=== PATIENT | male | born 1980 | race Caucasian/White ===

== ENCOUNTER 2018-11-03 10:26 | Emergency (ER) | payer OTHER ==
[2018-11-03 10:42] VITALS: BP 121/73; PULSE 73; RESP 18; TEMP 98.1
[2018-11-03] MEDS ORDERED: IBUPROFEN 600 MG TAB PO STA (11:04)
[2018-11-03] MEDS ORDERED: methylPREDNISolone SOD SUCCI 125 MG/2 ML VIAL IM ONE (11:04)
[2018-11-03] MEDS ORDERED: ORPHENADRINE 30 MG/ML 2 ML VIAL IM STA (11:04)
--- NOTE | 2018-11-03 11:33 | ED ---
General Adult HPI - General Chief complaint: Neck Pain/Injury Stated complaint: Neck pain Time Seen by Provider: 11/03/18 10:45 Source: patient, RN notes reviewed Mode of arrival: ambulatory Limitations: no limitations - History of Present Illness Initial comments: 38-year-old male presents to the emergency department for a chief complaint of chronic neck pain. Patient states he injured his neck years ago and has arthritis in his neck as well as right-sided posterior neck pain. Patient denies any recent injuries. Patient states this flared up over the past few weeks. Patient states he recently moved to the area yesterday. He states he has an appointment with pain management in 2 weeks. Patient denies any fevers or chills. He denies any neck stiffness. Patient denies any numbness or tingling in the bilateral arms. Patient has no other complaints at this time including shortness of breath, chest pain, abdominal pain, nausea or vomiting, headache, or visual changes. - Related Data Home Medications Medication Instructions Recorded Confirmed Ibuprofen [Motrin Ib] 600 mg PO TID PRN 11/03/18 11/03/18 Previous Rx's Medication Instructions Recorded Ibuprofen [Motrin] 600 mg PO Q8HR PRN #20 tab 11/03/18 Allergies Allergy/AdvReac Type Severity Reaction Status Date / Time No Known Allergies Allergy Verified 11/03/18 11:00 Review of Systems ROS Statement: Those systems with pertinent positive or pertinent negative responses have been documented in the HPI. ROS Other: All systems not noted in ROS Statement are negative. Past Medical History Additional Past Medical History / Comment(s): neck injury History of Any Multi-Drug Resistant Organisms: None Reported Past Surgical History: No Surgical Hx Reported Past Psychological History: ADD/ADHD, Anxiety, Depression Smoking Status: Former smoker Past Alcohol Use History: None Reported Past Drug Use History: None Reported General Exam Limitations: no limitations General appearance: alert, in no apparent distress Head exam: Present: atraumatic, normocephalic, normal inspection Eye exam: Present: normal appearance, PERRL, EOMI. Absent: scleral icterus, conjunctival injection, periorbital swelling ENT exam: Present: normal exam, mucous membranes moist, normal external ear exam Neck exam: Present: normal inspection, tenderness (Minimal tenderness noted over the paraspinal muscles on right side, no midline C-spine tenderness), full ROM (Full range of motion including flexion and extension rotation and lateral bending bilaterally). Absent: meningismus, lymphadenopathy Respiratory exam: Present: normal lung sounds bilaterally. Absent: respiratory distress, wheezes, rales, rhonchi, stridor Cardiovascular Exam: Present: regular rate, normal rhythm, normal heart sounds. Absent: systolic murmur, diastolic murmur, rubs, gallop, clicks Extremities exam: Present: full ROM (Full range of motion of upper extremities) , normal capillary refill (Radial pulse 2+ in upper extremities bilaterally) Neurological exam: Present: alert, oriented X3, CN II-XII intact Psychiatric exam: Present: normal affect, normal mood Course Vital Signs 11/03/18 10:39 Temperature 98.1 F Pulse Rate 73 Respiratory 18 Rate Blood Pressure 121/73 O2 Sat by Pulse 98 Oximetry Medical Decision Making - Medical Decision Making 38-year-old male presents for chronic neck pain. Patient denies any acute injuries. No tenderness in the C-spine. Minimal tenderness in the right-sided paraspinal muscles of the cervical neck. Patient showing medication seeking tendencies. Patient states he has been to multiple hospitals where they have given him small prescriptions for narcotics. I did discuss with patient that this is chronic and I will not be giving him narcotics today but will give him a steroid shot, muscle relaxer, Motrin. Patient states he knows it is up to the doctor's discretion and asks if any other providers here would be able to give him this pain medication. Patient just moved here yesterday so has not been seen in this emergency department but does state he has been to multiple hospitals for pain medications. [facility] was reviewed. Patient has had multiple small prescriptions on from multiple different providers over the past few months including tramadol, Tylenol 3, [place]. Patient does not have any midline tenderness, he has full range of motion of his neck. No acute injuries. No imaging needed at this time. Patient does have an appointment with pain management in 2 weeks and he will follow up with. He was also given a referral to primary care. Discussed returning here if he has any worsening symptoms. Disposition Clinical Impression: Chronic neck pain Disposition: HOME SELF-CARE Condition: Good Instructions: Cervical Strain (ED), Neck Pain (ED) Additional Instructions: Please take Motrin and Tylenol for pain. Please follow-up with primary care and attend your pain management appointment in 2 weeks. Return if you have any worsening symptoms. Prescriptions: Ibuprofen [Motrin] 600 mg PO Q8HR PRN #20 tab PRN Reason: Pain Is patient prescribed a controlled substance at d/c from ED?: No Referrals: Melly Huerta MD [STAFF PHYSICIAN] - 1-2 days Time of Disposition: 11:33
== END 2018-11-03 11:56 | disposition home or self-care (01) ==
LOC: EC 10:26
DX: G89.29 Other chronic pain (principal); M54.2 Cervicalgia; Z87.891 Personal history of nicotine dependence
CPT/HCPCS: 99283; 96372 ×2; J2360; J2930

== ENCOUNTER 2018-12-04 10:00 | Emergency (ER) | payer OTHER ==
[2018-12-04 10:08] VITALS: BP 130/87; PULSE 87; RESP 16; TEMP 98.7
[2018-12-04] MEDS ORDERED: CYCLOBENZAPRINE 10 MG TAB PO STA (10:32)
[2018-12-04] MEDS ORDERED: KETOROLAC 60 MG/2 ML VIAL IM STA (10:32)
--- NOTE | 2018-12-04 11:05 | ED ---
Neck Injury/Pain HPI - General Chief Complaint: Neck Pain/Injury Stated Complaint: neck pain Time Seen by Provider: 12/04/18 10:13 Mode of arrival: ambulatory Limitations: no limitations - History of Present Illness Initial Comments: 38-year-old male resents today for chief complaint of neck pain. Patient states he has had chronic neck pain for years, denies any new injury. He states he has been on medications at home which don't seem to be helping, he did not elaborate which medication he is on. He initially told me he had an appointment with a pain management clinic next month, when I asked which clinic he states will be point is actually with her primary care provider to set up an appointment at a pain management clinic. This is similar to the history obtained a month ago, and patient still has not been evaluated by pain management. Pt denies any numbness, tingling, loss sensation, muscle weakness, trauma, fever, chills, IVDU. Pt point to paravertebral muscles of the neck, right sided upon further questioning. Patient denies any previous surgeries. Upon arrival to the emergency Department patient is unable to provide identification. Multiple addresses used. Story appears inconsistent. Patient denies any recent fever, chills, shortness of breath, chest pain,low back pain, abdominal pain, nausea or vomiting, numbness or tingling, dysuria or hematuria, constipation or diarrhea, headaches or visual changes, or any other complaints. - Related Data Home Medications Medication Instructions Recorded Confirmed Ibuprofen [Motrin Ib] 600 mg PO Q6H PRN 12/04/18 12/04/18 Vitamin B Complex 1 cap PO DAILY 12/04/18 12/04/18 Previous Rx's Medication Instructions Recorded Cyclobenzaprine [Flexeril] 10 mg PO TID 5 Days #15 tab 12/04/18 Ibuprofen 800 mg PO Q8H PRN 7 Days #21 tablet 12/04/18 Allergies Allergy/AdvReac Type Severity Reaction Status Date / Time No Known Allergies Allergy Verified 12/04/18 10:22 Review of Systems ROS Statement: Those systems with pertinent positive or pertinent negative responses have been documented in the HPI. ROS Other: All systems not noted in ROS Statement are negative. Past Medical History Additional Past Medical History / Comment(s): neck injury History of Any Multi-Drug Resistant Organisms: None Reported Past Surgical History: No Surgical Hx Reported Past Psychological History: ADD/ADHD, Anxiety, Depression Smoking Status: Former smoker Past Alcohol Use History: None Reported Past Drug Use History: None Reported General Exam - General Exam Comments Initial Comments: General: The patient is awake and alert, in no distress, and does not appear acutely ill. Eye: +3 mm pupils are equal, round and reactive to light, extra-ocular movements are intact. No nystagmus. There is normal conjunctiva bilaterally. No signs of icterus. Ears, nose, mouth and throat: There are moist mucous membranes and no oral lesions. Oropharynx nonerythematous. No posterior lymphadenopathy. Neck: The neck is supple, there is no tenderness or JVD. Cardiovascular: There is a regular rate and rhythm. No murmur, rub or gallop is appreciated. Respiratory: Lungs are clear to auscultation, respirations are non-labored, breath sounds are equal. No wheezes, stridor, rales, or rhonchi. Musculoskeletal: Normal inspection of cervical spine, there is no midline tenderness to palpation. There is right-sided paravertebral tenderness. Patient is able to fully range the [place] spine with both flexion and extension , lateral flexion and rotation. Normal ROM, no tenderness of the upper extremities equal and comparison bilaterally. Strength 5/5 of the upper extremities equal comparison bilaterally. Sensation intact of the upper extremities equal b/l. Radial pulses equal bilaterally 2+. Patient is able to make the okay fingers crossed him Xopenex at the wrist bilaterally ulnar median and radial nerve appear intact. Neurological: A&O x 3. CN II-XII intact, There are no obvious motor or sensory deficits. Coordination appears grossly intact. Speech is normal. Skin: Skin is warm and dry and no rashes or lesions are noted. Psychiatric: Cooperative. Limitations: no limitations Course Vital Signs 12/04/18 10:05 Temperature 98.7 F Pulse Rate 87 Respiratory 16 Rate Blood Pressure 130/87 O2 Sat by Pulse 97 Oximetry Medical Decision Making - Medical Decision Making 38-year-old presenting for atraumatic neck pain. Denies any fever or chills or photophobia. Denies IV drug use. No radicular symptoms. Patient neurovascularly intact upon examination. Patient does not appear in distress. Patient appears comfortable. Pt states he takes medications at home that don't work. Pt story changes throughout history taking, appears inconsistent. At this time I obtained neck studies which revealed mild spondytic changes, pain is paravertebral. Toradol was administered for pain. PT requesting opioids. Pt states "if your going to give valium can you give me the hightest dose that you have". Pt states he has ride home was given 5mg PO valium. At this time I feel pt is stable for discharge with outpatient management of chronic neck pain through the primary care provider and pain clinic as discussed. Patient discharged appearing well. VS within acceptable limits. I discussed the case attending provider Dr. Soria prior to patient's discharge reviewed all radiographic imaging. Disposition Clinical Impression: Chronic neck pain Disposition: HOME SELF-CARE Condition: Good Instructions (If sedation given, give patient instructions): Chronic Neck Pain (DC) Additional Instructions: Please use medication as discussed. Please follow-up with family doctor in the next 2 days.. Please return to emergency room if the symptoms increase or worsen or for any other concerns. Prescriptions: Cyclobenzaprine [Flexeril] 10 mg PO TID 5 Days #15 tab Ibuprofen 800 mg PO Q8H PRN 7 Days #21 tablet PRN Reason: Pain Is patient prescribed a controlled substance at d/c from ED?: No Referrals: None,Stated [Primary Care Provider] - 1-2 days Dc Sanders, [Doctor of Osteopathic Medicine] - 1-2 days Time of Disposition: 11:09
--- NOTE | 2018-12-04 11:14 | XR ---
EXAMINATION TYPE: XR cervical spine comp DATE OF EXAM: 12/04/2018 COMPARISON: None HISTORY: 38-year-old male pain TECHNIQUE: 5 views FINDINGS: No predental space widening or prevertebral soft tissue swelling. Minimal endplate spondylosis. Mild uncovertebral joint arthropathy mid to lower cervical spine. Changes result in mild bony neuroforamin al narrowing at C5-C6 on the right. No significant bony neuroforaminal narrowing on the left. Normal odontoid view. IMPRESSION: Very mild spondylotic change. Changes result in mild bony neuroforaminal narrowing on the right at C5 -C6. No malalignment or prevertebral soft tissue swelling.
[2018-12-04] MEDS ORDERED: DIAZEPAM 5 MG TAB PO STA (11:24)
== END 2018-12-04 12:18 | disposition home or self-care (01) ==
LOC: EC 10:00
DX: M54.2 Cervicalgia (principal); G89.29 Other chronic pain; Z87.891 Personal history of nicotine dependence; Z53.29 Procedure and treatment not carried out because of patient's decision for other reasons
CPT/HCPCS: 72050; 99283; 96372; J1885

== ENCOUNTER 2018-12-23 10:41 | Emergency (ER) | payer OTHER ==
[2018-12-23 11:14] VITALS: BP 119/69; PULSE 72; RESP 18; TEMP 98
--- NOTE | 2018-12-23 11:51 | ED ---
Skin/Abscess/FB HPI - General Chief complaint: Skin/Abscess/Foreign Body Stated complaint: Male /rash Time Seen by Provider: 12/23/18 11:21 Source: patient, RN notes reviewed Mode of arrival: ambulatory Limitations: no limitations - History of Present Illness Initial comments: 38-year-old male presents emergency from chief complaint of rash his left side of his scrotum. Patient states that it itches at times but otherwise not painful. Patient states it seems to come and go worsen at times of increased warmth and moisture. Patient denies any penile discharge no penile shaft lesions or sores. Patient states that he's had some relief with antifungals in the past. - Related Data Home Medications Medication Instructions Recorded Confirmed No Known Home Medications 12/23/18 12/23/18 Allergies Allergy/AdvReac Type Severity Reaction Status Date / Time No Known Allergies Allergy Verified 12/23/18 11:47 Review of Systems ROS Statement: Those systems with pertinent positive or pertinent negative responses have been documented in the HPI. ROS Other: All systems not noted in ROS Statement are negative. Past Medical History Additional Past Medical History / Comment(s): neck injury History of Any Multi-Drug Resistant Organisms: None Reported Past Surgical History: No Surgical Hx Reported Past Psychological History: ADD/ADHD, Anxiety, Depression Smoking Status: Former smoker Past Alcohol Use History: None Reported Past Drug Use History: None Reported General Exam Limitations: no limitations General appearance: alert, in no apparent distress Head exam: Present: atraumatic, normocephalic, normal inspection Respiratory exam: Present: normal lung sounds bilaterally. Absent: respiratory distress, wheezes, rales, rhonchi, stridor Cardiovascular Exam: Present: regular rate, normal rhythm, normal heart sounds. Absent: systolic murmur, diastolic murmur, rubs, gallop, clicks GI/Abdominal exam: Present: soft, normal bowel sounds. Absent: distended, tenderness, guarding, rebound, rigid exam: Present: other (Left sided scrotal nursing erythematous demarcated border rash with no open lesions or sores no penile sores, no penile drainage area is nontender) Course Vital Signs 12/23/18 11:12 Temperature 98 F Pulse Rate 72 Respiratory 18 Rate Blood Pressure 119/69 O2 Sat by Pulse 99 Oximetry Medical Decision Making - Medical Decision Making 38 show male presented for rash. Patient appears to have a candidate DL infection on his scrotum. Patient was offered prescription of medication he states he'll use [id number] medication. He is also advised to follow-up with oncology or urology for biopsy if no improvement in the next 1-2 weeks. Disposition Clinical Impression: Candidiasis of scrotum Disposition: HOME SELF-CARE Condition: Stable Instructions (If sedation given, give patient instructions): Dony Mckeon (ED) Additional Instructions: Please return to the Emergency Department if symptoms worsen or any other concerns. Is patient prescribed a controlled substance at d/c from ED?: No Referrals: None,Stated [Primary Care Provider] - 1-2 days Time of Disposition: 11:51
== END 2018-12-23 12:10 | disposition home or self-care (01) ==
LOC: EC 10:41
DX: B37.89 Other sites of candidiasis (principal); Z87.891 Personal history of nicotine dependence
CPT/HCPCS: 99282

== ENCOUNTER 2018-12-27 16:05 | Emergency (ER) | payer OTHER ==
[2018-12-27 16:19] VITALS: TEMP 98.1
[2018-12-27] MEDS ORDERED: ASPIRIN 81 MG PO STA (16:27)
[2018-12-27] MEDS ORDERED: SODIUM CHLORIDE 0.9% 1,000 ML IV STA (16:27)
--- NOTE | 2018-12-27 16:34 | ED ---
General Adult HPI - General Chief complaint: Arrhythmia/Palpitations Stated complaint: Anxiety Time Seen by Provider: 12/27/18 16:22 Source: patient, RN notes reviewed Mode of arrival: ambulatory Limitations: no limitations - History of Present Illness Initial comments: 38-year-old male presents to the emergency department for a chief complaint of chest pain. Patient states he had a sharp stabbing chest pain in the center of his chest. He states he woke up with this pain. He states he drank a significant amount of alcohol last night and does not remember what kind of drugs he did. Patient is concerned he may have done methamphetamine. Patient states chest pain is resolved at this time but he still feels as though he is very anxious. He states he came here just to make sure everything is okay. Patient has no other complaints at this time including shortness of breath, chest pain, abdominal pain, nausea or vomiting, headache, or visual changes. - Related Data Home Medications Medication Instructions Recorded Confirmed No Known Home Medications 12/23/18 12/27/18 Allergies Allergy/AdvReac Type Severity Reaction Status Date / Time No Known Allergies Allergy Verified 12/27/18 16:32 Review of Systems ROS Statement: Those systems with pertinent positive or pertinent negative responses have been documented in the HPI. ROS Other: All systems not noted in ROS Statement are negative. Past Medical History Additional Past Medical History / Comment(s): neck injury History of Any Multi-Drug Resistant Organisms: None Reported Past Surgical History: No Surgical Hx Reported Past Psychological History: ADD/ADHD, Anxiety, Depression Smoking Status: Former smoker Past Alcohol Use History: None Reported Past Drug Use History: None Reported General Exam Limitations: no limitations General appearance: anxious Head exam: Present: atraumatic, normocephalic, normal inspection Eye exam: Present: normal appearance, PERRL, EOMI. Absent: scleral icterus, conjunctival injection, periorbital swelling ENT exam: Present: normal exam, mucous membranes moist Neck exam: Present: normal inspection, full ROM. Absent: tenderness, meningismus, lymphadenopathy Respiratory exam: Present: normal lung sounds bilaterally. Absent: respiratory distress, wheezes, rales, rhonchi, stridor Cardiovascular Exam: Present: regular rate, normal rhythm, normal heart sounds. Absent: systolic murmur, diastolic murmur, rubs, gallop, clicks Neurological exam: Present: alert, oriented X3, CN II-XII intact Psychiatric exam: Present: normal affect, normal mood. Absent: homicidal ideation, suicidal ideation (denies suicidal thoughts) Course Vital Signs 12/27/18 12/27/18 12/27/18 16:16 17:15 18:43 Temperature 98.1 F Pulse Rate 103 H 92 89 Respiratory 18 20 18 Rate Blood Pressure 138/83 136/83 132/63 O2 Sat by Pulse 97 97 100 Oximetry EKG Findings - EKG Comments: EKG Findings:: Normal sinus rhythm, ventricular rate 99, OH interval 142, QTC 408 Medical Decision Making - Medical Decision Making 38 her old male presents to the emergency department for a chief pain. He states he has had a sharp stabbing chest pain in the center chest since this morning. He states he drank a significant amount of alcohol last night and is concerned he may have done methamphetamine which has been making him very anxious. He states his chest pain has resolved at this time but he is still feeling anxious. On exam patient is well-appearing. Exam is generally unremarkable. CBC is unremarkable. CMP does show an elevated bilirubin of 2.6, I did discuss this with patient and he is not having any abdominal pain. However he is aware he needs to follow up with primary care to have this redrawn. CMP is otherwise unremarkable. Troponin is negative. UDS is positive for methamphetamines and amphetamines. Chest x-ray shows no acute process. On revaluation patient is sitting much better. He is stating he is ready to go home. Patient will follow up with primary care and return here if he has any worsening symptoms. - Lab Data Result diagrams: 12/27/18 16:47 12/27/18 16:47 Lab Results 12/27/18 12/27/18 12/27/18 Range/Units 16:47 16:47 16:47 WBC 8.3 (3.8-10.6) k/uL RBC 5.43 (4.30-5.90) m/uL Hgb 16.8 (13.0-17.5) gm/dL Hct 49.7 (39.0-53.0) % MCV 91.4 (80.0-100.0) fL MCH 30.9 (25.0-35.0) pg MCHC 33.8 (31.0-37.0) g/dL RDW 12.4 (11.5-15.5) % Plt Count 241 (150-450) k/uL Neutrophils % 75 % Lymphocytes % 17 % Monocytes % 6 % Eosinophils % 1 % Basophils % 0 % Neutrophils # 6.2 (1.3-7.7) k/uL Lymphocytes # 1.4 (1.0-4.8) k/uL Monocytes # 0.5 (0-1.0) k/uL Eosinophils # 0.1 (0-0.7) k/uL Basophils # 0.0 (0-0.2) k/uL PT 11.2 (9.0-12.0) sec INR 1.1 (<1.2) APTT 25.3 (22.0-30.0) sec Sodium 139 (137-145) mmol/L Potassium 4.0 (3.5-5.1) mmol/L Chloride 103 (98-107) mmol/L Carbon Dioxide 22 (22-30) mmol/L Anion Gap 14 mmol/L BUN 18 (9-20) mg/dL Creatinine 0.87 (0.66-1.25) mg/dL Est GFR (CKD-EPI)AfAm >90 (>60 ml/min/1.73 sqM) Est GFR (CKD-EPI)NonAf >90 (>60 ml/min/1.73 sqM) Glucose 126 H (74-99) mg/dL Calcium 9.8 (8.4-10.2) mg/dL Magnesium 2.0 (1.6-2.3) mg/dL Total Bilirubin 2.6 H (0.2-1.3) mg/dL AST 34 (17-59) U/L ALT 28 (21-72) U/L Alkaline Phosphatase 56 (38-126) U/L Troponin I (0.000-0.034) ng/mL Total Protein 8.4 H (6.3-8.2) g/dL Albumin 5.0 (3.5-5.0) g/dL Amylase 62 (30-110) U/L Lipase 29 (23-300) U/L Urine Color Urine Appearance (Clear) Urine pH (5.0-8.0) Ur Specific Godfrey (1.001-1.035) Urine Protein (Negative) Urine Glucose (UA) (Negative) Urine Ketones (Negative) Urine Blood (Negative) Urine Nitrite (Negative) Urine Bilirubin (Negative) Urine Urobilinogen (<2.0) mg/dL Ur Leukocyte Esterase (Negative) Urine RBC (0-5) /hpf Urine WBC (0-5) /hpf Ur Squamous Epith Cells (0-4) /hpf Urine Mucus (None) /hpf Urine Opiates Screen (NotDetected) Ur Oxycodone Screen (NotDetected) Urine Methadone Screen (NotDetected) Ur Propoxyphene Screen (NotDetected) Ur Barbiturates Screen (NotDetected) U Tricyclic Antidepress (NotDetected) Ur Phencyclidine Scrn (NotDetected) Ur Amphetamines Screen (NotDetected) U Methamphetamines Scrn (NotDetected) U Benzodiazepines Scrn (NotDetected) Urine Cocaine Screen (NotDetected) U Marijuana (THC) Screen (NotDetected) 12/27/18 12/27/18 Range/Units 16:47 16:47 WBC (3.8-10.6) k/uL RBC (4.30-5.90) m/uL Hgb (13.0-17.5) gm/dL Hct (39.0-53.0) % MCV (80.0-100.0) fL MCH (25.0-35.0) pg MCHC (31.0-37.0) g/dL RDW (11.5-15.5) % Plt Count (150-450) k/uL Neutrophils % % Lymphocytes % % Monocytes % % Eosinophils % % Basophils % % Neutrophils # (1.3-7.7) k/uL Lymphocytes # (1.0-4.8) k/uL Monocytes # (0-1.0) k/uL Eosinophils # (0-0.7) k/uL Basophils # (0-0.2) k/uL PT (9.0-12.0) sec INR (<1.2) APTT (22.0-30.0) sec Sodium (137-145) mmol/L Potassium (3.5-5.1) mmol/L Chloride (98-107) mmol/L Carbon Dioxide (22-30) mmol/L Anion Gap mmol/L BUN (9-20) mg/dL Creatinine (0.66-1.25) mg/dL Est GFR (CKD-EPI)AfAm (>60 ml/min/1.73 sqM) Est GFR (CKD-EPI)NonAf (>60 ml/min/1.73 sqM) Glucose (74-99) mg/dL Calcium (8.4-10.2) mg/dL Magnesium (1.6-2.3) mg/dL Total Bilirubin (0.2-1.3) mg/dL AST (17-59) U/L ALT (21-72) U/L Alkaline Phosphatase (38-126) U/L Troponin I <0.012 (0.000-0.034) ng/mL Total Protein (6.3-8.2) g/dL Albumin (3.5-5.0) g/dL Amylase (30-110) U/L Lipase (23-300) U/L Urine Color Yellow Urine Appearance Clear (Clear) Urine pH 5.5 (5.0-8.0) Ur Specific Godfrey 1.032 (1.001-1.035) Urine Protein 1+ H (Negative) Urine Glucose (UA) Negative (Negative) Urine Ketones 1+ H (Negative) Urine Blood Negative (Negative) Urine Nitrite Negative (Negative) Urine Bilirubin Negative (Negative) Urine Urobilinogen <2.0 (<2.0) mg/dL Ur Leukocyte Esterase Negative (Negative) Urine RBC 2 (0-5) /hpf Urine WBC 1 (0-5) /hpf Ur Squamous Epith Cells <1 (0-4) /hpf Urine Mucus Occasional H (None) /hpf Urine Opiates Screen Not Detected (NotDetected) Ur Oxycodone Screen Not Detected (NotDetected) Urine Methadone Screen Not Detected (NotDetected) Ur Propoxyphene Screen Not Detected (NotDetected) Ur Barbiturates Screen Not Detected (NotDetected) U Tricyclic Antidepress Not Detected (NotDetected) Ur Phencyclidine Scrn Not Detected (NotDetected) Ur Amphetamines Screen Detected H (NotDetected) U Methamphetamines Scrn Detected H (NotDetected) U Benzodiazepines Scrn Not Detected (NotDetected) Urine Cocaine Screen Not Detected (NotDetected) U Marijuana (THC) Screen Not Detected (NotDetected) - EKG Data -: EKG Interpreted by Me (and Dr Geiger) Disposition Clinical Impression: Chest pain, atypical, Anxiety Disposition: HOME SELF-CARE Condition: Good Instructions (If sedation given, give patient instructions): Heart Palpitations (ED), Polysubstance Abuse (ED) Additional Instructions: Please follow up with primary care in 1-2 days for abnormal lab results. Please return to the emergency department if you have any worsening symptoms. Is patient prescribed a controlled substance at d/c from ED?: No Referrals: Rio Key MD [STAFF PHYSICIAN] - 1-2 days Time of Disposition: 18:53
--- NOTE | 2018-12-27 17:14 | XR ---
EXAMINATION: XR chest 2V DATE AND TIME: 12/27/2018 5:03 PM CLINICAL INDICATION: PHH; Chest Pain TECHNIQUE: Departmental protocol COMPARISON: None FINDINGS: The lungs are clear. The pleural spaces are negative. The cardiac silhouette is not enlarged. The remainder of the mediastinal silhouette is unremarkable. The skeletal structures and soft tissues are negative for acute findings. IMPRESSION: NO ACUTE PROCESS.
[2018-12-27 17:22] LABS: Basophils % (A) 0 %; Eosinophils # (A) 0.1 k/uL (0-0.7); Eosinophils % (A) 1 %; HCT 49.7 % (39.0-53.0); HGB 16.8 gm/dL (13.0-17.5); Lymphocytes # (A) 1.4 k/uL (1.0-4.8); Lymphocytes % (A) 17 %; MCH 30.9 pg (25.0-35.0); MCHC 33.8 g/dL (31.0-37.0); MCV 91.4 fL (80.0-100.0); Mean Platelet Volume 7.4; Monocytes # (A) 0.5 k/uL (0-1.0); Monocytes % (A) 6 %; Neutrophils # (A) 6.2 k/uL (1.3-7.7); Neutrophils % (A) 75 %; Platelet Count 241 k/uL (150-450); RBC 5.43 m/uL (4.30-5.90); RDW 12.4 % (11.5-15.5); WBC 8.3 k/uL (3.8-10.6)
[2018-12-27 17:30] LABS: INR 1.1 (<1.2); Partial Thromboplastin Time 25.3 sec (22.0-30.0); Prothrombin Time 11.2 sec (9.0-12.0)
[2018-12-27 17:33] LABS: Appearance,Urine Clear (Clear); Bilirubin,Urine Negative (Negative); Blood,Urine Negative (Negative); Color,Urine Yellow; Glucose,Urine (UA) Negative (Negative); Ketones,Urine 1+ (Negative); Leukocyte Esterase,Urine Negative (Negative); Mucus,Urine Occasional /hpf; Nitrite,Urine Negative (Negative); PH, Urine 5.5 (5.0-8.0); Protein,Urine 1+ (Negative); RBC,Urine 2 /hpf (0-5); Specific Gravity,Urine 1.032 (1.001-1.035); Squamous Epithelial Cell,Urine <1 /hpf (0-4); Urobilinogen,Urine <2.0 mg/dL (<2.0); WBC,Urine 1 /hpf (0-5)
[2018-12-27 17:34] LABS: ALT 28 U/L (21-72); AST 34 U/L (17-59); Alkaline Phosphatase 56 U/L (38-126); Amylase 62 U/L (30-110); Anion Gap 14 mmol/L; Blood Urea Nitrogen 18 mg/dL (9-20); Calcium 9.8 mg/dL (8.4-10.2); Carbon Dioxide 22 mmol/L (22-30); Chloride 103 mmol/L (98-107); Glucose 126 mg/dL (74-99); Lipase 29 U/L (23-300); Sodium 139 mmol/L (137-145); Total Bilirubin 2.6 mg/dL (0.2-1.3); Total Protein 8.4 g/dL (6.3-8.2)
[2018-12-27] MEDS ORDERED: DIAZEPAM 5 MG/ML 2 ML INJ IVP STA (17:39)
[2018-12-27 17:49] LABS: Amphetamine Screen,Urine Detected (NotDetected); Barbiturate Screen,Urine Not Detected (NotDetected); Benzodiazepines Screen,Urine Not Detected (NotDetected); Cocaine Screen,Urine Not Detected (NotDetected); Methadone Screen, Urine Not Detected (NotDetected); Opiate Screen,Urine Not Detected (NotDetected); Oxycodone Screen, Urine Not Detected (NotDetected); Phencyclidine Screen,Urine Not Detected (NotDetected); Tricyclic Antidepressant,Urine Not Detected (NotDetected); Urn Cannabinoid Scrn Not Detected (NotDetected)
[2018-12-27] MEDS ORDERED: DIAZEPAM 5 MG/ML (10 ML MDV) IVP STA (17:54)
[2018-12-27 18:44] VITALS: BP 132/63; PULSE 89; RESP 18
== END 2018-12-27 19:02 | disposition home or self-care (01) ==
LOC: EC 16:05
DX: F41.9 Anxiety disorder, unspecified (principal); R07.89 Other chest pain; R79.89 Other specified abnormal findings of blood chemistry; Z87.891 Personal history of nicotine dependence
CPT/HCPCS: 36415; 80053; 82150; 83690; 83735; 84484; 85025; 85610; 85730; 81001; 80306; 71046; 99285; 96374; 96361; J3360

== ENCOUNTER 2019-02-10 22:32 | Emergency (ER) | payer OTHER ==
[2019-02-10 22:54] VITALS: BP 131/72; PULSE 90; RESP 18; TEMP 97.7
[2019-02-10] MEDS ORDERED: HYDROcodone/APAP 5-325MG 1 EACH TAB PO STA (23:26)
--- NOTE | 2019-02-10 23:29 | ED ---
General Adult HPI - General Chief complaint: Headache Stated complaint: head & neck pain Time Seen by Provider: 02/10/19 23:20 Source: patient Mode of arrival: ambulatory Limitations: no limitations - History of Present Illness Initial comments: Dictation was produced using [employer] dictation software. please excuse any grammatical, word or spelling errors. Chief Complaint: 38-year-old male presents with neck pain. History of Present Illness: 38-year-old male withpast medical history. Patient reports that he's been having this pain for several years now after an injury. States that he does not have any pain medications at home. Patient states that this pain makes him a little anxious. Is currently under house arrest. Patient denies any fever, chills or night sweats. He reports that there is a gummy consistency to his right trapezius area that is the point of his pain. The ROS documented in this emergency department record has been reviewed and confirmed by me. Those systems with pertinent positive or negative responses have been documented in the HPI. All other systems are other negative and/or noncontributory. PHYSICAL EXAM: General Impression: Alert and oriented x3, not in acute distress HEENT: Normocephalic atraumatic, extra-ocular movements intact, pupils equal and reactive to light bilaterally, mucous membranes moist, palpable trigger point over the right trapezius Cardiovascular: Heart regular rate and rhythm, S1&S2 audible, no murmurs, rubs or gallops Chest: Lungs clear to auscultation bilaterally, no rhonchi, no wheeze, no rales Abdomen: Bowel sounds present, abdomen soft, non-tender, non-distended, no organomegaly Musculoskeletal: Pulses present and equal in all extremities, no peripheral edema Motor: no focal deficits noted Neurological: CN II-XII grossly intact, no focal motor or sensory deficits noted Skin: Intact with no visualized rashes Psych: Normal affect and mood ED course: 38-year-old male presents with pain of the neck. Clinical presentation consistent with cervical neck strain. Patient given 2 Milnor. She reevaluated with improvement of symptoms. Vital signs upon arrival are within acceptable limits. Patient clear for discharge. Patient showing signs of drug- seeking behavior. Patient for discharge to follow-up with his primary care physician. - Related Data Home Medications Medication Instructions Recorded Confirmed No Known Home Medications 12/23/18 02/10/19 Allergies Allergy/AdvReac Type Severity Reaction Status Date / Time No Known Allergies Allergy Verified 02/10/19 23:16 Review of Systems ROS Statement: Those systems with pertinent positive or pertinent negative responses have been documented in the HPI. ROS Other: All systems not noted in ROS Statement are negative. Past Medical History Additional Past Medical History / Comment(s): neck injury, anxiety History of Any Multi-Drug Resistant Organisms: None Reported Past Surgical History: No Surgical Hx Reported Past Psychological History: ADD/ADHD, Anxiety, Depression Smoking Status: Former smoker Past Alcohol Use History: None Reported Past Drug Use History: None Reported General Exam Limitations: no limitations Course Vital Signs 02/10/19 22:49 Temperature 97.7 F Pulse Rate 90 Respiratory 18 Rate Blood Pressure 131/72 O2 Sat by Pulse 97 Oximetry Disposition Clinical Impression: Cervical strain Disposition: HOME SELF-CARE Condition: Good Instructions (If sedation given, give patient instructions): Cervical Strain (ED) Is patient prescribed a controlled substance at d/c from ED?: No Referrals: None,Stated [Primary Care Provider] - 1-2 days Time of Disposition: 23:29
== END 2019-02-10 23:54 | disposition home or self-care (01) ==
LOC: EC 22:32
DX: S16.1XXA Strain of muscle, fascia and tendon at neck level, initial encounter (principal); Z87.891 Personal history of nicotine dependence; Z65.3 Problems related to other legal circumstances; X58.XXXA Exposure to other specified factors, initial encounter
CPT/HCPCS: 99283

== ENCOUNTER 2019-02-17 11:23 | Emergency (ER) | payer OTHER ==
--- NOTE | 2019-02-17 12:30 | ED ---
Headache HPI - General Chief Complaint: Headache Stated Complaint: Head/neck pain Time Seen by Provider: 02/17/19 12:29 Source: RN notes reviewed, old records reviewed Mode of arrival: ambulatory Limitations: no limitations - History of Present Illness Initial Comments: This is a 38-year-old male the ER for evaluation. Patient resents today for evaluation of headache and neck pain. Concern for old neck injury. Patient denies any recent trauma. Headache times one week. Patient admits to some anxiety secondary to current legal troubles. Otherwise patient has no complaints MD Complaint: headache, other (Neck pain) -: week(s) Onset Description: gradual, now resolved Location: occipital Severity: mild Severity scale (1-10): 3 Quality: throbbing Consistency: intermittent Improves With: nothing Worsens With: none Context: occurred at rest Associated Symptoms: other (Anxiety) Treatments Prior to Arrival: none - Related Data Home Medications Medication Instructions Recorded Confirmed No Known Home Medications 12/23/18 02/24/19 Allergies Allergy/AdvReac Type Severity Reaction Status Date / Time No Known Allergies Allergy Verified 02/24/19 18:32 Review of Systems ROS Statement: Those systems with pertinent positive or pertinent negative responses have been documented in the HPI. ROS Other: All systems not noted in ROS Statement are negative. Past Medical History Additional Past Medical History / Comment(s): neck injury, anxiety History of Any Multi-Drug Resistant Organisms: None Reported Past Surgical History: No Surgical Hx Reported Past Psychological History: ADD/ADHD, Anxiety, Depression Smoking Status: Former smoker Past Alcohol Use History: None Reported Past Drug Use History: None Reported General Exam Limitations: no limitations General appearance: alert, in no apparent distress Head exam: Present: atraumatic, normocephalic, normal inspection Eye exam: Present: normal appearance, PERRL, EOMI. Absent: scleral icterus, conjunctival injection, periorbital swelling ENT exam: Present: normal exam, mucous membranes moist Neck exam: Present: normal inspection. Absent: tenderness, meningismus, lymph adenopathy Respiratory exam: Present: normal lung sounds bilaterally. Absent: respiratory distress, wheezes, rales, rhonchi, stridor Cardiovascular Exam: Present: regular rate, normal rhythm, normal heart sounds. Absent: systolic murmur, diastolic murmur, rubs, gallop, clicks GI/Abdominal exam: Present: soft, normal bowel sounds. Absent: distended, tenderness, guarding, rebound, rigid Extremities exam: Present: normal inspection, full ROM, normal capillary refill. Absent: tenderness, pedal edema, joint swelling, calf tenderness Back exam: Present: normal inspection Neurological exam: Present: alert, oriented X3, CN II-XII intact Psychiatric exam: Present: normal affect, normal mood Skin exam: Present: warm, dry, intact, normal color. Absent: rash Course Vital Signs 02/17/19 02/17/19 11:41 14:06 Temperature 97.5 F L 97.8 F Pulse Rate 89 81 Respiratory 18 16 Rate Blood Pressure 142/89 141/88 O2 Sat by Pulse 99 99 Oximetry Medical Decision Making - Medical Decision Making 38 male the ER for evaluation of headache. Headache and neck pain for a week. History of same. Computed tomography scan is negative symptoms are improved. Patient can be discharged home - Radiology Data Radiology results: report reviewed (CT of his brain and C-spine is negative for acute disease), image reviewed Disposition Clinical Impression: Neck pain Disposition: HOME SELF-CARE Condition: Good Instructions (If sedation given, give patient instructions): Neck Pain (ED) Is patient prescribed a controlled substance at d/c from ED?: No Referrals: Nonstaff,Physician [REFERRING] - 1-2 days
[2019-02-17] MEDS ORDERED: DIAZEPAM 5 MG TAB PO STA (12:49)
--- NOTE | 2019-02-17 13:15 | CT ---
EXAMINATION TYPE: CT brain amado wo con DATE OF EXAM: 02/17/2019 COMPARISON: NONE HISTORY: Fall with injury in 2009. Posterior head and neck pain since. CT DLP: 1364.1 mGycm. Automated Exposure Control for Dose Reduction was Utilized. TECHNIQUE: CT scan of the head and cervical spine are performed without contrast. FINDINGS: There is no acute intracranial hemorrhage, mass effect, or midline shift identified. The ventricles and sulci are within normal limits in size. Matthews-white matter differentiation is maintain ed. The globes are intact and the visualized sinuses are clear. And the calvarium is intact. Cervical spine is visualized in its entirety from C1 through upper thoracic levels and demonstrates s atisfactory alignment without evidence of acute fracture or dislocation. Prevertebral soft tissue ap pears within normal limits. The C1-C2 articulation is within normal limits on the coronal images. Ve rtebral body heights and disc space heights are maintained. Spinal canal is preserved. Thyroid gland is felt within normal limits. Lung apices are clear. IMPRESSION: 1. There is no acute fracture or dislocation evident in the cervical spine. 2. No acute intracranial hemorrhage, mass effect, or midline shift is seen.
[2019-02-17 14:07] VITALS: BP 141/88; PULSE 81; RESP 16; TEMP 97.8
== END 2019-02-17 14:06 | disposition home or self-care (01) ==
LOC: EC 11:23
DX: M54.2 Cervicalgia (principal); R51 Headache; Z87.891 Personal history of nicotine dependence
CPT/HCPCS: 70450; 72125; 99284

== ENCOUNTER 2019-02-24 17:39 | Emergency (ER) | payer OTHER ==
[2019-02-24 18:09] VITALS: PULSE 67; RESP 16; TEMP 98.3
[2019-02-24] MEDS ORDERED: DIAZEPAM 5 MG TAB PO STA (18:31)
[2019-02-24] MEDS ORDERED: KETOROLAC 60 MG/2 ML VIAL IM STA (18:31)
--- NOTE | 2019-02-24 18:43 | ED ---
General Adult HPI - General Chief complaint: Neck Pain/Injury Stated complaint: neck pain Time Seen by Provider: 02/24/19 18:13 Source: patient, RN notes reviewed, old records reviewed Mode of arrival: ambulatory Limitations: no limitations - History of Present Illness Initial comments: 38-year-old male patient with past medical history of chronic cervical neck pain presents to ED with mild exacerbation of right paracervical neck pain. Patient presents from an injury 10+ years ago. Patient has been evaluated multiple times for this complaint. Patient states that his pain is of the same quality and she has experienced in the past. Patient denies any new falls or trauma. Denies any new or concerning symptoms. Patient denies any headache or changes in vision. Patient denies any upper or lower extremity weakness, paresthesias. Patient denies any saddle anesthesia or loss of bowel or bladder control. Patient does have outpatient follow-up scheduled in 2 days and pain management. Patient denies any other complaints denies any chest pain or shortness Systemic: Pt denies fatigue, fever/chills, rash. Pt denies weakness, night sweats, weight loss. Neuro: Pt denies headache, visual disturbances, syncope or pre-syncope. HEENT: Pt denies ocular discharge or irritation, otalgia, rhinorrhea, pharyngitis or notable lymphadenopathy. Cardiopulmonary: Pt denies chest pain, SOB, heart palpitations, dyspnea on exertion. Abdominal/GI: Pt denies abdominal pain, n/v/d. : Pt denies dysuria, burning w/ urination, frequency/urgency. Denies new onset urinary or bowel incontinence. MSK: Pt denies loss of strength or function in extremities. Neuro: Pt denies new onset weakness, paresthesias. - Related Data Home Medications Medication Instructions Recorded Confirmed No Known Home Medications 12/23/18 02/24/19 Allergies Allergy/AdvReac Type Severity Reaction Status Date / Time No Known Allergies Allergy Verified 02/24/19 18:32 Review of Systems ROS Statement: Those systems with pertinent positive or pertinent negative responses have been documented in the HPI. ROS Other: All systems not noted in ROS Statement are negative. Past Medical History Additional Past Medical History / Comment(s): neck injury, anxiety History of Any Multi-Drug Resistant Organisms: None Reported Past Surgical History: No Surgical Hx Reported Past Psychological History: ADD/ADHD, Anxiety, Depression Smoking Status: Former smoker Past Alcohol Use History: Occasional Past Drug Use History: None Reported General Exam - General Exam Comments Initial Comments: Constitutional: NAD, AOX3, Pt has pleasant affect. HEENT: NC/AT, trachea midline, neck supple, no lymphadenopathy. Posterior pharynx non erythematous, without exudates. External ears appear normal, without discharge. Mucous membranes moist. Eyes PERRLA, EOM intact. There is no scleral icterus. No pallor noted. Cardiopulmonary: RRR, no murmurs, rubs or gallops, no JVD noted. Lungs CTAB in anterior and posterior dumont. No peripheral edema. Abdominal exam: Abdomen soft and non-distended. Abdomen non-tender to palpation in all 4 quadrants. Bowel sounds active in LLQ. No hepatosplenomegaly. No ecchymosis Neuro: CN II-XII intact. No nuchal rigidity. Mild right paracervical tenderness. No midline cervical thoracic or lumbar tenderness. No focal deficit or facial droop. MSK: No posterior calf tenderness bilaterally, homans sign negative bilaterally. Posterior tibialis and radial pulse +2 bilaterally. Sensation intact in upper and lower extremities. Full active ROM in upper and lower extremities, 5/5 stregnth. Limitations: no limitations Course Vital Signs 02/24/19 18:03 Temperature 98.3 F Pulse Rate 67 Respiratory 16 Rate O2 Sat by Pulse 97 Oximetry Medical Decision Making - Medical Decision Making 38-year-old male patient with past medical history of chronic cervical neck pain presents to ED with mild exacerbation of right paracervical neck pain. Patient presents from an injury 10+ years ago. Patient has been evaluated multiple times for this complaint. Patient states that his pain is of the same quality and she has experienced in the past. Patient denies any new falls or trauma. Denies any new or concerning symptoms. Patient denies any headache or changes in vision. Patient denies any upper or lower extremity weakness, paresthesias. Patient denies any saddle anesthesia or loss of bowel or bladder control. Patient does have outpatient follow-up scheduled in 2 days and pain management. Patient denies any other complaints denies any chest pain or shortness. Patient vital signs stable, afebrile. Physical exam displayed: CN II-XII intact. No nuchal rigidity. Mild right paracervical tenderness. No midline cervical thoracic or lumbar tenderness. No focal deficit or facial droop. Pt had recent imaging of a brain and cervical spine CT without contrast on 02/17/2019, this did not display acute pathology. Shared decision making, patient does not wish for any repeat imaging. Patient will be treated symptomatically in ER. Patient will be discharged with pain management follow-up which he has previously scheduled as well as orthopedic follow-up. Patient is not driving home. Patient return to ER condition worsens. Case discussed with Dr. Zayas. Disposition Clinical Impression: Neck pain Disposition: HOME SELF-CARE Condition: Stable Instructions (If sedation given, give patient instructions): Cervical Sprain (ED) Additional Instructions: Patient to adhere to previously discussed treatment plan and will take medication(s) as directed. Patient to follow up with PCP in 1-2 days. Patient to return to ED if symptoms do not improve. Follow-up with primary care provider on to 2 days. Follow-up with pain management 1-2 days. Follow up with orthopedic consult 1-2 days. Is patient prescribed a controlled substance at d/c from ED?: No Referrals: None,Stated [Primary Care Provider] - 1-2 days Dc Sanders, DO [Doctor of Osteopathic Medicine] - 1-2 days
[2019-02-24 18:59] VITALS: BP 133/73
== END 2019-02-24 19:00 | disposition home or self-care (01) ==
LOC: EC 17:39
DX: M54.2 Cervicalgia (principal); G89.29 Other chronic pain; Z87.891 Personal history of nicotine dependence
CPT/HCPCS: 99283; 96372; J1885

== ENCOUNTER 2019-03-17 02:44 | Emergency (ER) | payer OTHER ==
[2019-03-17] MEDS ORDERED: ONDANSETRON 4 MG/2 ML VIAL IVP STA (03:19)
[2019-03-17 04:09] LABS: Glucose,Whole Blood 105 mg/dL (75-99)
[2019-03-17 04:15] LABS: Basophils % (A) 0 %; Eosinophils # (A) 0.1 k/uL (0-0.7); Eosinophils % (A) 1 %; HCT 50.9 % (39.0-53.0); Lymphocytes # (A) 1.2 k/uL (1.0-4.8); Lymphocytes % (A) 11 %; MCH 30.7 pg (25.0-35.0); MCHC 33.3 g/dL (31.0-37.0); MCV 92.2 fL (80.0-100.0); Mean Platelet Volume 6.8; Monocytes # (A) 0.3 k/uL (0-1.0); Monocytes % (A) 3 %; Neutrophils % (A) 84 %; Platelet Count 252 k/uL (150-450); RBC 5.52 m/uL (4.30-5.90); RDW 12.4 % (11.5-15.5); WBC 10.6 k/uL (3.8-10.6)
[2019-03-17 04:27] LABS: ALT 22 U/L (21-72); AST 34 U/L (17-59); Albumin 4.9 g/dL (3.5-5.0); Alkaline Phosphatase 66 U/L (38-126); Anion Gap 13 mmol/L; Blood Urea Nitrogen 12 mg/dL (9-20); Calcium 8.9 mg/dL (8.4-10.2); Carbon Dioxide 23 mmol/L (22-30); Chloride 107 mmol/L (98-107); Glucose 111 mg/dL (74-99); Potassium 4.2 mmol/L (3.5-5.1); Sodium 143 mmol/L (137-145); Total Protein 7.8 g/dL (6.3-8.2)
[2019-03-17 04:36] VITALS: RESP 18
--- NOTE | 2019-03-17 04:39 | CT ---
EXAM: CT Head Without Intravenous Contrast CLINICAL HISTORY: ITS.REASON CT Reason: Pain TECHNIQUE: Axial computed tomography images of the head/brain without intravenous contrast. CTDI is 50 mGy and DLP is 1158 mGy-cm. This CT exam was performed using one or more of the following dose reduction techniques: automated exposure control, adjustment of the mA and/or kV according to patient size, and/or use of iterative reconstruction technique. COMPARISON: 02/17/19 CT head FINDINGS: Brain: No hemorrhage, large hypodensity, or mass effect. Ventricles: No hydrocephalus. Bones/joints: Unremarkable. Soft tissues: Unremarkable. Sinuses: Mild maxillary sinus mucosal thickening. Mastoid air cells: Clear. IMPRESSION: No acute hemorrhage, hydrocephalus, or mass effect.
[2019-03-17 04:41] VITALS: TEMP 97.6
[2019-03-17 04:54] LABS: Alcohol 279 mg/dL
--- NOTE | 2019-03-17 05:08 | ED ---
Altered Mental Status HPI - General Source: patient Mode of arrival: wheelchair Limitations: altered mental status, physical limitation <Humera Owusu - Last Filed: 03/17/19 05:04> <Chad Zyaas - Last Filed: 03/17/19 16:14> - General Chief Complaint: Altered Mental Status Stated Complaint: Altered Mental Status - History of Present Illness Initial Comments: 38-year-old male patient is brought to the emergency department for evaluation. Patient appears to be intoxicated. Patient was in a taxicab and requested to be brought to the emergency department but he is unclear as to why he is here. Patient does admit to drinking alcohol. Patient states he is stating needs counseling and is tearful. He denies any suicidal or homicidal ideation. Denies any current injuries or pain. He does have some facial abrasions. He is alert and oriented 1 only. Poor historian. (Humera Owusu) - Related Data Home Medications Medication Instructions Recorded Confirmed No Known Home Medications 12/23/18 03/17/19 Allergies Allergy/AdvReac Type Severity Reaction Status Date / Time No Known Allergies Allergy Verified 03/17/19 07:42 Review of Systems ROS Other: All systems not noted in ROS Statement are negative. <Humera Owusu - Last Filed: 03/17/19 05:04> ROS Other: All systems not noted in ROS Statement are negative. <Chad Zayas - Last Filed: 03/17/19 16:14> ROS Statement: Those systems with pertinent positive or pertinent negative responses have been documented in the HPI. Past Medical History Additional Past Medical History / Comment(s): neck injury, anxiety History of Any Multi-Drug Resistant Organisms: None Reported Past Surgical History: No Surgical Hx Reported Past Alcohol Use History: Occasional <Humera Owusu - Last Filed: 03/17/19 05:04> General Exam Limitations: altered mental status, physical limitation General appearance: alert, appears intoxicated, other (Physical well-developed, well-nourished adult male patient who is obviously intoxicated. Temperature is 97.2F, pulse 72, respirations 18, blood pressure 122/78, pulse ox 95% on room air.) Head exam: Present: other (Patient has abrasions noted over the right forehead.) Eye exam: Present: normal appearance, PERRL, EOMI. Absent: scleral icterus, conjunctival injection, periorbital swelling ENT exam: Present: normal exam, normal oropharynx, mucous membranes moist, other (Or abrasions noted to the right side of the nose. The nasal bone exhibits no tenderness, step-off or bony deformity.) Neck exam: Present: normal inspection, full ROM, other (Nontender, no step-off, no deformity to firm midline palpation of the posterior cervical spine. Full range of motion without pain or limitation.). Absent: tenderness, meningismus, lymphadenopathy Respiratory exam: Present: normal lung sounds bilaterally. Absent: respiratory distress, wheezes, rales, rhonchi, stridor Cardiovascular Exam: Present: regular rate, normal rhythm, normal heart sounds. Absent: systolic murmur, diastolic murmur, rubs, gallop, clicks GI/Abdominal exam: Present: soft, normal bowel sounds. Absent: distended, tenderness, guarding, rebound, rigid Neurological exam: Present: alert, CN II-XII intact. Absent: oriented X3 (Oriented 1) Psychiatric exam: Present: depressed, other (Tearful) Skin exam: Present: warm, dry, intact, normal color. Absent: rash <Humera Owusu M - Last Filed: 03/17/19 05:04> Course Vital Signs 03/17/19 03/17/19 03/17/19 02:55 03:07 03:30 Temperature 97.2 F L Pulse Rate 72 85 55 L Respiratory 18 Rate Blood Pressure 122/78 135/97 135/97 O2 Sat by Pulse 95 97 Oximetry 03/17/19 03/17/19 03/17/19 04:00 04:30 04:36 Temperature 97.6 F Pulse Rate 56 L 56 L 59 L Respiratory 18 Rate Blood Pressure 135/97 116/83 102/59 O2 Sat by Pulse 98 96 Oximetry 03/17/19 03/17/19 03/17/19 05:00 05:30 06:00 Temperature Pulse Rate 58 L 71 64 Respiratory Rate Blood Pressure 116/83 116/83 116/83 O2 Sat by Pulse 95 95 96 Oximetry 03/17/19 03/17/19 03/17/19 06:30 11:38 16:08 Temperature Pulse Rate 65 70 74 Respiratory 18 18 Rate Blood Pressure 116/83 101/60 131/78 O2 Sat by Pulse 96 98 99 Oximetry Procedures - [facility] Protocol (Time Out) Nurse: Humera Owusu <Humera Owusu - Last Filed: 03/17/19 05:04> Medical Decision Making - Lab Data Result diagrams: 03/17/19 04:00 03/17/19 04:00 - Radiology Data Radiology results: report reviewed, image reviewed <Humera Owusu - Last Filed: 03/17/19 05:04> - Lab Data Result diagrams: 03/17/19 04:00 03/17/19 04:00 <Chad Zayas - Last Filed: 03/17/19 16:14> - Medical Decision Making The patient was observed by staff throughout the day until he gains sobriety. He was evaluated by psychiatric service he currently is not a risk of suffering also he is not suicidal. He will be discharged. (Chad Zayas) - Lab Data Lab Results 03/17/19 03/17/19 03/17/19 Range/Units 04:00 04:00 04:08 WBC 10.6 (3.8-10.6) k/uL RBC 5.52 (4.30-5.90) m/uL Hgb 17.0 (13.0-17.5) gm/dL Hct 50.9 (39.0-53.0) % MCV 92.2 (80.0-100.0) fL MCH 30.7 (25.0-35.0) pg MCHC 33.3 (31.0-37.0) g/dL RDW 12.4 (11.5-15.5) % Plt Count 252 (150-450) k/uL Neutrophils % 84 % Lymphocytes % 11 % Monocytes % 3 % Eosinophils % 1 % Basophils % 0 % Neutrophils # 9.0 H (1.3-7.7) k/uL Lymphocytes # 1.2 (1.0-4.8) k/uL Monocytes # 0.3 (0-1.0) k/uL Eosinophils # 0.1 (0-0.7) k/uL Basophils # 0.0 (0-0.2) k/uL Sodium 143 (137-145) mmol/L Potassium 4.2 (3.5-5.1) mmol/L Chloride 107 (98-107) mmol/L Carbon Dioxide 23 (22-30) mmol/L Anion Gap 13 mmol/L BUN 12 (9-20) mg/dL Creatinine 0.79 (0.66-1.25) mg/dL Est GFR (CKD-EPI)AfAm >90 (>60 ml/min/1.73 sqM) Est GFR (CKD-EPI)NonAf >90 (>60 ml/min/1.73 sqM) Glucose 111 H (74-99) mg/dL POC Glucose (mg/dL) 105 H (75-99) mg/dL POC Glu Senior [employer]er ID Ayah Perdomo Calcium 8.9 (8.4-10.2) mg/dL Total Bilirubin 1.0 (0.2-1.3) mg/dL AST 34 (17-59) U/L ALT 22 (21-72) U/L Alkaline Phosphatase 66 (38-126) U/L Total Protein 7.8 (6.3-8.2) g/dL Albumin 4.9 (3.5-5.0) g/dL Urine Opiates Screen (NotDetected) Ur Oxycodone Screen (NotDetected) Urine Methadone Screen (NotDetected) Ur Propoxyphene Screen (NotDetected) Ur Barbiturates Screen (NotDetected) U Tricyclic Antidepress (NotDetected) Ur Phencyclidine Scrn (NotDetected) Ur Amphetamines Screen (NotDetected) U Methamphetamines Scrn (NotDetected) U Benzodiazepines Scrn (NotDetected) Urine Cocaine Screen (NotDetected) U Marijuana (THC) Screen (NotDetected) Serum Alcohol 279 H* mg/dL 03/17/19 Range/Units 13:40 WBC (3.8-10.6) k/uL RBC (4.30-5.90) m/uL Hgb (13.0-17.5) gm/dL Hct (39.0-53.0) % MCV (80.0-100.0) fL MCH (25.0-35.0) pg MCHC (31.0-37.0) g/dL RDW (11.5-15.5) % Plt Count (150-450) k/uL Neutrophils % % Lymphocytes % % Monocytes % % Eosinophils % % Basophils % % Neutrophils # (1.3-7.7) k/uL Lymphocytes # (1.0-4.8) k/uL Monocytes # (0-1.0) k/uL Eosinophils # (0-0.7) k/uL Basophils # (0-0.2) k/uL Sodium (137-145) mmol/L Potassium (3.5-5.1) mmol/L Chloride (98-107) mmol/L Carbon Dioxide (22-30) mmol/L Anion Gap mmol/L BUN (9-20) mg/dL Creatinine (0.66-1.25) mg/dL Est GFR (CKD-EPI)AfAm (>60 ml/min/1.73 sqM) Est GFR (CKD-EPI)NonAf (>60 ml/min/1.73 sqM) Glucose (74-99) mg/dL POC Glucose (mg/dL) (75-99) mg/dL POC Glu Senior Media Buyer ID Calcium (8.4-10.2) mg/dL Total Bilirubin (0.2-1.3) mg/dL AST (17-59) U/L ALT (21-72) U/L Alkaline Phosphatase (38-126) U/L Total Protein (6.3-8.2) g/dL Albumin (3.5-5.0) g/dL Urine Opiates Screen Not Detected (NotDetected) Ur Oxycodone Screen Not Detected (NotDetected) Urine Methadone Screen Not Detected (NotDetected) Ur Propoxyphene Screen Not Detected (NotDetected) Ur Barbiturates Screen Not Detected (NotDetected) U Tricyclic Antidepress Not Detected (NotDetected) Ur Phencyclidine Scrn Not Detected (NotDetected) Ur Amphetamines Screen Not Detected (NotDetected) U Methamphetamines Scrn Not Detected (NotDetected) U Benzodiazepines Scrn Not Detected (NotDetected) Urine Cocaine Screen Not Detected (NotDetected) U Marijuana (THC) Screen Detected H (NotDetected) Serum Alcohol mg/dL - Radiology Data CT of the brain without contrast was obtained. Report reviewed in its entirety. Impression by Dr. Baumann shows no acute hemorrhage, hydrocephalus, mass effect. (Humera Owusu) Disposition <Humera Owusu - Last Filed: 03/17/19 05:04> Is patient prescribed a controlled substance at d/c from ED?: No <Chad Zayas - Last Filed: 03/17/19 16:14> Clinical Impression: Alcoholic intoxication, Adjustment disorder Disposition: HOME SELF-CARE Condition: Good Instructions (If sedation given, give patient instructions): Alcohol I ntoxication (ED), Mood Disorders (ED) Referrals: None,Stated [Primary Care Provider] - 1-2 days
[2019-03-17] MEDS ORDERED: LORazepam 1 MG TAB PO STA (11:07)
[2019-03-17 14:18] LABS: Amphetamine Screen,Urine Not Detected (NotDetected); Barbiturate Screen,Urine Not Detected (NotDetected); Benzodiazepines Screen,Urine Not Detected (NotDetected); Cocaine Screen,Urine Not Detected (NotDetected); Methadone Screen, Urine Not Detected (NotDetected); Opiate Screen,Urine Not Detected (NotDetected); Oxycodone Screen, Urine Not Detected (NotDetected); Phencyclidine Screen,Urine Not Detected (NotDetected); Tricyclic Antidepressant,Urine Not Detected (NotDetected); Urn Cannabinoid Scrn Detected (NotDetected)
[2019-03-17 16:09] VITALS: BP 131/78; PULSE 74
== END 2019-03-17 16:43 | disposition home or self-care (01) ==
LOC: EC 02:44
DX: S00.31XA Abrasion of nose, initial encounter (principal); F10.129 Alcohol abuse with intoxication, unspecified; F43.20 Adjustment disorder, unspecified
CPT/HCPCS: 36415; 70450; 80053; 80306; 80320; 85025; 93005; 96374; 99285

== ENCOUNTER 2019-03-25 12:38 | Emergency (ER) | payer OTHER ==
[2019-03-25 13:00] VITALS: BP 140/79; PULSE 85; RESP 16; TEMP 97.5
--- NOTE | 2019-03-25 13:35 | ED ---
Neck Injury/Pain HPI - General Chief Complaint: Neck Pain/Injury Stated Complaint: Neck pain Time Seen by Provider: 03/25/19 13:02 Mode of arrival: ambulatory Limitations: no limitations - History of Present Illness Initial Comments: 38 yo male presenting for neck pain. Patient has issues with chronic neck pain. Patient states he fell 6 days ago and was evaluated at that time. Patient states he had imaging studies of his neck however this did not appear true on chart review. Patient states it is a tense pain more like a strain of the right side of the neck. He states "I do not think anything is broken". She states ibuprofen is not helping at home. He states needs something stronger. Remaining review of systems negative. - Related Data Home Medications Medication Instructions Recorded Confirmed No Known Home Medications 12/23/18 03/17/19 Allergies Allergy/AdvReac Type Severity Reaction Status Date / Time No Known Allergies Allergy Verified 03/25/19 13:00 Review of Systems ROS Statement: Those systems with pertinent positive or pertinent negative responses have been documented in the HPI. ROS Other: All systems not noted in ROS Statement are negative. Past Medical History Additional Past Medical History / Comment(s): neck injury, anxiety History of Any Multi-Drug Resistant Organisms: None Reported Past Surgical History: No Surgical Hx Reported Past Psychological History: ADD/ADHD, Anxiety, Depression Past Alcohol Use History: Occasional General Exam - General Exam Comments Initial Comments: General: The patient is awake and alert, in no distress, and does not appear acutely ill. Eye: Pupils are equal, round and reactive to light, extra-ocular movements are intact. No nystagmus. There is normal conjunctiva bilaterally. No signs of icterus. Ears, nose, mouth and throat: There are moist mucous membranes and no oral lesions. Neck: The neck is supple, there is no tenderness or JVD. Patient is right sided paravertebral tenderness. No midline tenderness to palpation patient is a thyroid with full flexion extension and lateral flexion and rotation without difficulty. Cardiovascular: There is a regular rate and rhythm. No murmur, rub or gallop is appreciated. Respiratory: Lungs are clear to auscultation, respirations are non-labored, breath sounds are equal. No wheezes, stridor, rales, or rhonchi. Musculoskeletal: Normal ROM, no tenderness. Strength 5/5. Sensation intact. Radial pulses equal bilaterally 2+. Neurological: A&O x 3. CN II-XII intact, There are no obvious motor or sensory deficits. Coordination appears grossly intact. Speech is normal. Skin: Skin is warm and dry and no rashes or lesions are noted. Psychiatric: Cooperative, appropriate mood & affect, normal judgment. Limitations: no limitations Course Vital Signs 03/25/19 12:57 Temperature 97.5 F L Pulse Rate 85 Respiratory 16 Rate Blood Pressure 140/79 O2 Sat by Pulse 98 Oximetry Medical Decision Making - Medical Decision Making 38-year-old male presented for right-sided neck pain. Patient states is chronic but hasn't worsened since his fall. Patient states he had imaging studies he continues to refuse x-rays. He agreed upon my evaluation but when the tech went to take patient to x-ray he refused. Patient states he only wants treatment. Patient requesting opioid by name. Patient was given Valium for muscle tension. He has ride home. Otherwise patient's physical exam unremarkable. Patient has no other complaints. Patient states he is ready to go home. He refuses any further workup. Patient discharged appearing well. Disposition Clinical Impression: Neck pain Disposition: HOME SELF-CARE Condition: Good Instructions (If sedation given, give patient instructions): Cervical Strain ( ED) Additional Instructions: Please use medication as discussed. Please follow-up with pain management as scheduled and primary care provider. Please return to emergency room if the symptoms increase or worsen or for any other concerns. Is patient prescribed a controlled substance at d/c from ED?: No Referrals: None,Stated [Primary Care Provider] - 1-[facility] days [facility]-2 days Time of Disposition: 13:48
[2019-03-25] MEDS ORDERED: ORPHENADRINE 30 MG/ML 2 ML VIAL IM STA (13:47)
[2019-03-25] MEDS ORDERED: IBUPROFEN 800 MG TAB PO STA (13:47)
[2019-03-25] MEDS ORDERED: DIAZEPAM 5 MG TAB PO STA (13:53)
== END 2019-03-25 14:30 | disposition home or self-care (01) ==
LOC: EC 12:38
DX: M54.2 Cervicalgia (principal)
CPT/HCPCS: 99283

== ENCOUNTER 2019-04-25 21:08 | Emergency (ER) | payer OTHER ==
[2019-04-25 21:21] VITALS: BP 148/83; PULSE 77; RESP 18; TEMP 98.5
--- NOTE | 2019-04-25 22:06 | XR ---
PROCEDURE: XR hand complete RT - 3V DATE AND TIME: 04/25/2019 9:59 PM CLINICAL INDICATION: [facility]; Pain TECHNIQUE: Department protocol COMPARISON: None FINDINGS: There is no fracture or malalignment. The soft tissues are unremarkable. The base of the fifth metacarpal shaft is mildly apex dorsal angulation, having the appearance of rem odeling from remote fracture injury. This can be confirmed with additional history from the patient. IMPRESSION: No acute process.
[2019-04-25] MEDS ORDERED: AMOXIC-POT CLAV 875-125MG 1 EACH TAB PO STA (22:09)
--- NOTE | 2019-04-25 22:13 | ED ---
General Adult HPI - General Chief complaint: Wound/Laceration Stated complaint: Hand laceration Time Seen by Provider: 04/25/19 21:27 Source: patient Mode of arrival: ambulatory Limitations: no limitations - History of Present Illness Initial comments: Patient is a 38-year-old male presenting to the emergency department with a dog bite. Patient reports he was wrestling with a dog when it bit him on the right hand 2 days ago. Patient reports a mild puncture wound that has slowly become erythematous and edematous. Patient denies discharge or skin discoloration. Patient reports full range of motion. Patient reports mild pain that is exacerbated with palpation and alleviated at rest. Patient denies numbness or tingling. Patient denies fever, nausea, vomiting. Patient reports his tetanus status is up-to-date. Patient reports the dog is vaccinated for rabies. - Related Data Previous Rx's Medication Instructions Recorded Amoxicillin/Potassium Clav 1 tab PO Q12HR #20 tab 04/25/19 [Augmentin 875-125 Tablet] Allergies Allergy/AdvReac Type Severity Reaction Status Date / Time No Known Allergies Allergy Verified 04/25/19 21:21 Review of Systems ROS Statement: Those systems with pertinent positive or pertinent negative responses have been documented in the HPI. ROS Other: All systems not noted in ROS Statement are negative. Past Medical History Additional Past Medical History / Comment(s): neck injury, anxiety History of Any Multi-Drug Resistant Organisms: None Reported Past Surgical History: No Surgical Hx Reported Past Psychological History: ADD/ADHD, Anxiety, Depression Smoking Status: Never smoker Past Alcohol Use History: Occasional Past Drug Use History: None Reported General Exam - General Exam Comments Initial Comments: General: Well-developed well-nourished distress HEENT: Normocephalic/atraumatic, PERLL, pharynx erythema, swallowing well, EAC no erythema, no exudates, TM clear, no cervical lymph nodes Neck: Supple, nontender, trachea midline Chest/Lungs: Normal respirations, no signs of respiratory distress clear to auscultation bilaterally no wheezes, rales, rhonchi Cardiac: Regular rate and rhythm, normal S1-S2, no murmurs rubs or gallops Abdomen/GI: Soft nontender, bowel sounds equal or quadrant x4, no guarding, no rebound no CVA tenderness : Deferred Musculoskeletal: Small puncture wound on the palmar aspect of the right hand, mild erythema and edema but no discharge, full range of motion Skin: Warmth, no rashes or lesions, no cyanosis or diaphoresis Neurologic: AAO x 3, CN 2-12 intact, Psychiatric: Mood and affect normal, judgment normal Limitations: no limitations Course Vital Signs 04/25/19 21:19 Temperature 98.5 F Pulse Rate 77 Respiratory 18 Rate Blood Pressure 148/83 O2 Sat by Pulse 98 Oximetry Medical Decision Making - Medical Decision Making Patient is a 38-year-old male presents emergency Department with a dog bite. X- ray of the right hand is negative for acute fractures or dislocations. Patient was given a single dose of Augmentin and will be discharged with a 10 day course of Augmentin. The dog bite appears to be getting infected but it is in the early stages. Strict return parameters were thoroughly discussed with patient who is understanding and agreeable. Patient advised to follow-up with primary care. Case discussed with physician. Disposition Clinical Impression: Dog bite, hand Disposition: HOME SELF-CARE Condition: Stable Instructions (If sedation given, give patient instructions): Animal Bite (ED) Additional Instructions: Please take prescribed medication as directed. Please follow with primary care. Please return to emergency department if symptoms worsen. Prescriptions: Amoxicillin/Potassium Clav [Augmentin 875-125 Tablet] 1 tab PO Q12HR #20 tab Is patient prescribed a controlled substance at d/c from ED?: No Referrals: None,Stated [Primary Care Provider] - 1-2 days Time of Disposition: 22:13
== END 2019-04-25 22:40 | disposition home or self-care (01) ==
LOC: EC 21:08
DX: S61.431A Puncture wound without foreign body of right hand, initial encounter (principal); W54.0XXA Bitten by dog, initial encounter; Y93.72 Activity, wrestling
CPT/HCPCS: 99283

== ENCOUNTER 2019-04-30 19:20 | Emergency (ER) | payer OTHER ==
[2019-04-30 19:38] VITALS: TEMP 98.9
[2019-04-30] MEDS ORDERED: SODIUM CHLORIDE 0.9% 1,000 ML IV STA (19:47)
[2019-04-30] MEDS ORDERED: THIAMINE 100 MG/ML 2 ML VIAL IM STA (19:47)
[2019-04-30 20:22] LABS: INR 1.1 (<1.2); Prothrombin Time 11.2 sec (9.0-12.0)
[2019-04-30 20:26] LABS: ALT 19 U/L (21-72); AST 22 U/L (17-59); African American GFR (CKD) >90 (>60 ml/min/1.73 sqM); Albumin 4.7 g/dL (3.5-5.0); Alkaline Phosphatase 53 U/L (38-126); Anion Gap 9 mmol/L; Blood Urea Nitrogen 8 mg/dL (9-20); Calcium 9.2 mg/dL (8.4-10.2); Carbon Dioxide 27 mmol/L (22-30); Chloride 109 mmol/L (98-107); Glucose 130 mg/dL (74-99); Lipase 28 U/L (23-300); Magnesium 2.2 mg/dL (1.6-2.3); Phosphorus 3.1 mg/dL (2.5-4.5); Potassium 4.7 mmol/L (3.5-5.1); Sodium 145 mmol/L (137-145); Total Bilirubin 0.8 mg/dL (0.2-1.3); Total Protein 7.6 g/dL (6.3-8.2)
[2019-04-30 20:28] LABS: Basophils % (A) 0 %; Eosinophils # (A) 0.1 k/uL (0-0.7); Eosinophils % (A) 1 %; HCT 46.5 % (39.0-53.0); HGB 15.7 gm/dL (13.0-17.5); Lymphocytes # (A) 0.8 k/uL (1.0-4.8); Lymphocytes % (A) 9 %; MCH 30.2 pg (25.0-35.0); MCHC 33.8 g/dL (31.0-37.0); MCV 89.4 fL (80.0-100.0); Mean Platelet Volume 7.3; Monocytes # (A) 0.3 k/uL (0-1.0); Monocytes % (A) 3 %; Neutrophils # (A) 7.7 k/uL (1.3-7.7); Neutrophils % (A) 87 %; Platelet Count 255 k/uL (150-450); RBC 5.21 m/uL (4.30-5.90); RDW 13.5 % (11.5-15.5); WBC 8.9 k/uL (3.8-10.6)
[2019-04-30 20:29] LABS: Alcohol 198 mg/dL
--- NOTE | 2019-04-30 21:10 | ED ---
Alcohol HPI - General Chief Complaint: Alcohol Stated Complaint: ETOH Time Seen by Provider: 04/30/19 19:31 Source: patient, family Mode of arrival: ambulatory Limitations: no limitations - History of Present Illness Initial Comments: 38yo male with history of alcohol abuse presenting for intoxication. Patient brought in by girlfriend because she states she drank 2 bottles of wine within a short period time she was concerned of alcohol poisoning. She states patient was vomiting. She denies patient having falls or trauma. Patient is well-known to the emergency department I'm aware patient's baseline. Patient is responsive he denies any falls injury. Patient states he feels he drank too much today. Patient states he has not been drinking often he states he has not had seizures or any withdrawals. Patient denies any drug use today. Patient denies headache and the emesis he denies melena or hematochezia. Patient has no complaints aside from wanting water. Remaining ROS (-). Patient dry heaving and smells of alcohol. - Related Data Previous Rx's Medication Instructions Recorded Amoxicillin/Potassium Clav 1 tab PO Q12HR #20 tab 04/25/19 [Augmentin 875-125 Tablet] Allergies Allergy/AdvReac Type Severity Reaction Status Date / Time No Known Allergies Allergy Verified 04/30/19 19:36 Review of Systems ROS Statement: Those systems with pertinent positive or pertinent negative responses have been documented in the HPI. ROS Other: All systems not noted in ROS Statement are negative. Past Medical History Additional Past Medical History / Comment(s): neck injury, anxiety History of Any Multi-Drug Resistant Organisms: None Reported Past Surgical History: No Surgical Hx Reported Past Psychological History: ADD/ADHD, Anxiety, Depression Smoking Status: Current some day smoker Past Alcohol Use History: Heavy Past Drug Use History: None Reported General Exam - General Exam Comments Initial Comments: General: The patient is awake and alert, in no distress Eye: +3 mm pupils are equal, round and reactive to light, extra-ocular movements are intact. No nystagmus. There is normal conjunctiva bilaterally. No signs of icterus. Ears, nose, mouth and throat: There are moist mucous membranes and no oral lesions. Neck: The neck is supple, there is no tenderness or JVD. No midline tenderness to palpation of the cervical spine. Cardiovascular: There is a regular rate and rhythm. No murmur, rub or gallop is appreciated. Respiratory: Lungs are clear to auscultation, respirations are non-labored, breath sounds are equal. No wheezes, stridor, rales, or rhonchi. Gastrointestinal: Soft, non-distended, non-tender abdomen without masses or organomegaly noted. There is no rebound or guarding present. Musculoskeletal: Normal ROM, no tenderness. Strength 5/5. Sensation intact. Radial pulses equal bilaterally 2+. Neurological: A&O x 3. CN II-XII intact, There are no obvious motor or sensory deficits. Coordination appears grossly intact. Speech is normal. Skin: Skin is warm and dry and no rashes or lesions are noted. Psychiatric: Cooperative, smells of alcohol, keenly responsive Limitations: no limitations Course Vital Signs 04/30/19 04/30/19 19:30 21:11 Temperature 98.9 F Pulse Rate 81 75 Respiratory 18 14 Rate Blood Pressure 104/66 104/60 O2 Sat by Pulse 100 100 Oximetry Medical Decision Making - Medical Decision Making 38 yo male well known to the emergency department presented for intoxication history of cold use. Patient will call [phone]. Patient had an episode of vomiting the ER. No additional episodes. Patient came in responsive no focal neurological deficits. History of falls or trauma. No evidence of trauma examination. No tenderness to palpation of the cervical spine. After studies are unremarkable. Patient was given IV hydration. Patient requesting discharge. Patient is accompanied by his girlfriend. She will take patient home. She denies any suicidal or homicidal ideation. This I do not feel patient is a threat to himself or others and is safe for discharge with ride home. Discussed case with Dr Loredo who is agreeable with this care plan. - Lab Data Result diagrams: 04/30/19 20:04 04/30/19 20:04 Lab Results 04/30/19 04/30/19 04/30/19 Range/Units 20:04 20:04 20:04 WBC 8.9 (3.8-10.6) k/uL RBC 5.21 (4.30-5.90) m/uL Hgb 15.7 (13.0-17.5) gm/dL Hct 46.5 (39.0-53.0) % MCV 89.4 (80.0-100.0) fL MCH 30.2 (25.0-35.0) pg MCHC 33.8 (31.0-37.0) g/dL RDW 13.5 (11.5-15.5) % Plt Count 255 (150-450) k/uL Neutrophils % 87 % Lymphocytes % 9 % Monocytes % 3 % Eosinophils % 1 % Basophils % 0 % Neutrophils # 7.7 (1.3-7.7) k/uL Lymphocytes # 0.8 L (1.0-4.8) k/uL Monocytes # 0.3 (0-1.0) k/uL Eosinophils # 0.1 (0-0.7) k/uL Basophils # 0.0 (0-0.2) k/uL PT 11.2 (9.0-12.0) sec INR 1.1 (<1.2) Sodium 145 (137-145) mmol/L Potassium 4.7 (3.5-5.1) mmol/L Chloride 109 H (98-107) mmol/L Carbon Dioxide 27 (22-30) mmol/L Anion Gap 9 mmol/L BUN 8 L (9-20) mg/dL Creatinine 1.03 (0.66-1.25) mg/dL Est GFR (CKD-EPI)AfAm >90 (>60 ml/min/1.73 sqM) Est GFR (CKD-EPI)NonAf >90 (>60 ml/min/1.73 sqM) Glucose 130 H (74-99) mg/dL Calcium 9.2 (8.4-10.2) mg/dL Phosphorus 3.1 (2.5-4.5) mg/dL Magnesium 2.2 (1.6-2.3) mg/dL Total Bilirubin 0.8 (0.2-1.3) mg/dL AST 22 (17-59) U/L ALT 19 L (21-72) U/L Alkaline Phosphatase 53 (38-126) U/L Total Protein 7.6 (6.3-8.2) g/dL Albumin 4.7 (3.5-5.0) g/dL Lipase 28 (23-300) U/L Serum Alcohol 198 mg/dL Disposition Clinical Impression: Alcohol intoxication Disposition: HOME SELF-CARE Condition: Good Instructions (If sedation given, give patient instructions): Alcohol Intoxication (ED), Abuse of Alcohol (ED) Additional Instructions: Please use medication as discussed. Please follow-up with family doctor in the next 2 days. Please return to emergency room if the symptoms increase or worsen or for any other concerns. Is patient prescribed a controlled substance at d/c from ED?: No Referrals: None,Stated [Primary Care Provider] - 1-2 days [facility] [NON-STAFF] - 1-2 days Time of Disposition: 21:09
[2019-04-30 21:14] VITALS: BP 104/60; PULSE 75; RESP 14
== END 2019-04-30 21:16 | disposition home or self-care (01) ==
LOC: EC 19:20
DX: F10.129 Alcohol abuse with intoxication, unspecified (principal); F17.200 Nicotine dependence, unspecified, uncomplicated
CPT/HCPCS: 36415; 80053; 83690; 83735; 84100; 85025; 85610; 99284; 96360; 96372; G0480; J3411; 80320

== ENCOUNTER 2019-05-14 11:36 | Emergency (ER) | payer OTHER ==
[2019-05-14] MEDS ORDERED: LORazepam 1 MG TAB PO STA (12:18)
[2019-05-14 12:21] VITALS: BP 130/97; PULSE 79; RESP 16; TEMP 98.2
--- NOTE | 2019-05-14 12:22 | ED ---
General Adult HPI - General Chief complaint: Anxiety Stated complaint: ANXIETY Time Seen by Provider: 05/14/19 11:50 Source: patient, RN notes reviewed Mode of arrival: ambulatory Limitations: no limitations - History of Present Illness Initial comments: Ez is a 38-year-old male well-known to this emergency department presents for a chief complaint of anxiety. Patient states his anxiety has been very high over the last several days. States he no longer takes medications for anxiety but does have a history. States that his 80-year-old to family member and his family has been very upset. He states this is causing him increased anxiety and he has been very tearful. However patient denies any thoughts of suicide or harming himself whatsoever. States his coping mechanisms and would never think to do this. Denies any recent alcohol binging.Patient has no other complaints at this time including shortness of breath, chest pain, abdominal pain, nausea or vomiting, headache, or visual changes. - Related Data Home Medications Medication Instructions Recorded Confirmed No Known Home Medications 05/14/19 05/14/19 Allergies Allergy/AdvReac Type Severity Reaction Status Date / Time No Known Allergies Allergy Verified 05/14/19 12:06 Review of Systems ROS Statement: Those systems with pertinent positive or pertinent negative responses have been documented in the HPI. ROS Other: All systems not noted in ROS Statement are negative. Past Medical History Additional Past Medical History / Comment(s): neck injury, anxiety History of Any Multi-Drug Resistant Organisms: None Reported Past Surgical History: No Surgical Hx Reported Past Psychological History: ADD/ADHD, Anxiety, Depression, PTSD Smoking Status: Current some day smoker Past Alcohol Use History: None Reported, Heavy, Occasional Past Drug Use History: None Reported General Exam Limitations: no limitations General appearance: alert, anxious Head exam: Present: atraumatic, normocephalic, normal inspection Eye exam: Present: normal appearance, PERRL, EOMI. Absent: scleral icterus, conjunctival injection, periorbital swelling ENT exam: Present: normal exam, mucous membranes moist Neck exam: Present: normal inspection, full ROM. Absent: tenderness, meningismus, lymphadenopathy Respiratory exam: Present: normal lung sounds bilaterally. Absent: respiratory distress, wheezes, rales, rhonchi, stridor Cardiovascular Exam: Present: regular rate, normal rhythm, normal heart sounds. Absent: systolic murmur, diastolic murmur, rubs, gallop, clicks GI/Abdominal exam: Present: soft, normal bowel sounds. Absent: distended, tenderness, guarding, rebound, rigid Neurological exam: Present: alert, oriented X3, CN II-XII intact Psychiatric exam: Present: normal affect, normal mood, anxious. Absent: homicidal ideation, suicidal ideation Course Vital Signs 05/14/19 11:44 Temperature 97 F L Pulse Rate 114 H Respiratory 18 Rate Blood Pressure 150/108 O2 Sat by Pulse 98 Oximetry Medical Decision Making - Medical Decision Making 38-year-old male presents to the emergency determine for a chief complaint of anxiety. Patient states a family member recently in the past couple days and now he has anxiety because of this. States that he used to have occasions number for anxiety but has been able to cope with this throughout other mechanisms. Patient denies any thoughts of suicide or harming himself wh atsoever. Vitals improved throughout patient's stay. Patient was given 1 mg of Ativan by mouth. Patient was given outpatient referral lists. Discussed the importance of following up with these because we will not be able to give him Ativan through the emergency department for his anxiety in the future. Discussed returning here if he has any worsening symptoms. Disposition Clinical Impression: Acute anxiety Disposition: HOME SELF-CARE Condition: Good Instructions (If sedation given, give patient instructions): Generalized Anxiety Disorder (ED) Additional Instructions: Please follow up with referrals given to you as well as primary care provider. Is patient prescribed a controlled substance at d/c from ED?: No Referrals: Fabian Alan MD [REFERRING] - 1-2 days Time of Disposition: 12:21
== END 2019-05-14 12:25 | disposition home or self-care (01) ==
LOC: EC 11:36
DX: F41.9 Anxiety disorder, unspecified (principal); F17.200 Nicotine dependence, unspecified, uncomplicated
CPT/HCPCS: 99282

== ENCOUNTER 2019-05-31 12:15 | Emergency (ER) | payer OTHER ==
[2019-05-31 12:40] VITALS: BP 128/68; PULSE 84; RESP 18; TEMP 98
[2019-05-31] MEDS ORDERED: IBUPROFEN 600 MG TAB PO STA (13:19)
[2019-05-31] MEDS ORDERED: HYDROcodone/APAP 5-325MG 1 EACH TAB PO STA (13:19)
--- NOTE | 2019-05-31 13:19 | ED ---
General Adult HPI - General Chief complaint: Neck Pain/Injury Stated complaint: neck pain Time Seen by Provider: 05/31/19 12:28 Source: patient, RN notes reviewed Mode of arrival: ambulatory Limitations: no limitations - History of Present Illness Initial comments: Patient is a pleasant 38-year-old male presenting to the emergency Department with some neck pain. Neck pain is chronic and been present for years. Patient has had previous x-rays and evaluations. Patient states he just got his insurance back and is planning to see a primary care physician in 2 days. Patient requests narcotic pain medication. Patient states he has been to urgent care recently and they offered him Toradol which she knows did not work. Patient states narcotics have worked previously. Patient states discomfort is more in the right side. Patient states discomfort does radiate up somewhat and causes some headache to the right posterior region. Patient states it does radiate down his back as well at times. Discomfort is positional. No recent injury. Patient denies any weakness. No loss of sensation. - Related Data Home Medications Medication Instructions Recorded Confirmed No Known Home Medications 05/14/19 05/31/19 Allergies Allergy/AdvReac Type Severity Reaction Status Date / Time No Known Allergies Allergy Verified 05/31/19 13:15 Review of Systems ROS Statement: Those systems with pertinent positive or pertinent negative responses have been documented in the HPI. ROS Other: All systems not noted in ROS Statement are negative. Constitutional: Denies: fever Eyes: Denies: eye pain ENT: Denies: ear pain Respiratory: Denies: cough, dyspnea Cardiovascular: Denies: chest pain Endocrine: Denies: fatigue Gastrointestinal: Denies: abdominal pain Genitourinary: Denies: dysuria Musculoskeletal: Denies: back pain Skin: Denies: rash Neurological: Reports: as per HPI. Denies: weakness, numbness, paresthesias, confusion Psychiatric: Reports: anxiety Past Medical History Additional Past Medical History / Comment(s): neck injury, anxiety History of Any Multi-Drug Resistant Organisms: None Reported Past Surgical History: No Surgical Hx Reported Past Psychological History: ADD/ADHD, Anxiety, Depression Smoking Status: Former smoker Past Alcohol Use History: None Reported, Heavy, Occasional Past Drug Use History: None Reported General Exam Limitations: no limitations General appearance: alert, in no apparent distress Head exam: Present: atraumatic Eye exam: Present: normal appearance, PERRL Neck exam: Present: normal inspection, other (Mild tenderness right lateral mid neck.). Absent: meningismus Respiratory exam: Present: normal lung sounds bilaterally Cardiovascular Exam: Present: regular rate, normal rhythm Expanded Peripheral pulses: 2+: Radial (R), Radial (L) GI/Abdominal exam: Present: soft. Absent: tenderness Extremities exam: Present: normal inspection Neurological exam: Present: alert. Absent: motor sensory deficit Expanded Sensory exam: Upper Extremity Light Touch: Normal Motor strength exam: RUE: 5, LUE: 5 Psychiatric exam: Present: normal affect, normal mood Skin exam: Present: normal color Course Vital Signs 05/31/19 12:37 Temperature 98 F Pulse Rate 84 Respiratory 18 Rate Blood Pressure 128/68 O2 Sat by Pulse 95 Oximetry Disposition Clinical Impression: Chronic neck pain Disposition: HOME SELF-CARE Condition: Stable Instructions (If sedation given, give patient instructions): Chronic Neck Pain (DC), Neck Pain (ED) Additional Instructions: Please follow-up with primary care physician in 2 days as planned. Consider physical therapy. Return for weakness, loss of and station, fevers, worsening or changing symptoms or other concerns. Is patient prescribed a controlled substance at d/c from ED?: No Referrals: Melly Huerta MD [STAFF PHYSICIAN] - 1-2 days Time of Disposition: 13:19
== END 2019-05-31 13:31 | disposition home or self-care (01) ==
LOC: EC 12:15
DX: G89.29 Other chronic pain (principal); M54.2 Cervicalgia; Z87.891 Personal history of nicotine dependence
CPT/HCPCS: 99283

== ENCOUNTER 2019-06-08 17:28 | Emergency (ER) | payer OTHER ==
[2019-06-08 17:31] VITALS: BP 171/87; PULSE 74; RESP 20; TEMP 97.4
[2019-06-08] MEDS ORDERED: KETOROLAC 30 MG/ML 1 ML VIAL IM STA (18:21)
--- NOTE | 2019-06-08 19:36 | ED ---
Anxiety HPI - General Chief Complaint: Anxiety Stated Complaint: Anxiety Time Seen by Provider: 06/08/19 17:37 Source: patient Mode of arrival: ambulatory - History of Present Illness Initial Comments: Patient is a 38-year-old male with history of anxiety is presenting to emergency Department with a chief complaint anxiety and neck pain. Patient reports he was recently released from nursing home and has since began developing increased anxiety. Patient states that he is asking for antianxiety medication. Patient does not have a psychiatrist or a counselor. Patient reports he is scheduled to see a counselor next week. Patient reports that he has nobody to pick him up and is walking home. Patient also reports neck pain due to a previous traumatic injury. Patient states that he has a "knot" in the right side of his neck that is causing pain with lateral neck flexion and extension. Patient reports is a chronic issue that causes pain few times a year. Patient denies any headaches, nausea or vomiting. Patient denies any numbness or tingling. Patient denies one-sided weakness or paresthesias. - Related Data Home Medications: Previous Rx's Medication Instructions Recorded Cyclobenzaprine [Flexeril] 5 mg PO TID PRN #15 tablet 06/08/19 Allergies/Adverse Reactions: Allergies Allergy/AdvReac Type Severity Reaction Status Date / Time No Known Allergies Allergy Verified 06/08/19 18:25 Review of Systems ROS Statement: Those systems with pertinent positive or pertinent negative responses have been documented in the HPI. ROS Other: All systems not noted in ROS Statement are negative. Past Medical History Additional Past Medical History / Comment(s): neck injury, anxiety History of Any Multi-Drug Resistant Organisms: None Reported Past Surgical History: No Surgical Hx Reported Past Psychological History: ADD/ADHD, Anxiety, Depression Smoking Status: Former smoker Past Alcohol Use History: None Reported, Heavy, Occasional Past Drug Use History: None Reported General Exam - General Exam Comments Initial Comments: General: Well-developed well-nourished distress HEENT: Normocephalic/atraumatic, PERLL, pharynx erythema, swallowing well, EAC no erythema, no exudates, TM clear, no cervical lymph nodes Neck: Supple, nontender, trachea midline, full range of motion, very mild tenderness on palpation on the right side of the neck, no palpable masses, no crepitus Chest/Lungs: Normal respirations, no signs of respiratory distress clear to auscultation bilaterally no wheezes, rales, rhonchi Cardiac: Regular rate and rhythm, normal S1-S2, no murmurs rubs or gallops Abdomen/GI: Soft nontender, bowel sounds equal or quadrant x4, no guarding, no rebound no CVA tenderness Musculoskeletal: Nontender, full range of motion, no edema, strength equal bilaterally Skin: Warmth, no rashes or lesions, no cyanosis or diaphoresis Neurologic: AAO x 3, CN 2-12 intact, Psychiatric: Mood and affect normal, judgment normal Limitations: no limitations Course Vital Signs 06/08/19 17:30 Temperature 97.4 F L Pulse Rate 74 Respiratory 20 Rate Blood Pressure 171/87 O2 Sat by Pulse 98 Oximetry Medical Decision Making - Medical Decision Making Patient is a 38-year-old male with history of anxiety is presenting to emergency Department with a chief complaint of anxiety and neck pain. Patient was given Toradol for her neck pain. Patient kept insisting that he wants stronger pain medication. Patient was also requesting Ativan for anxiety. Patient does not have a ride to get home states that his walking home. Patient will not be given any benzodiazepines at this time for anxiety. After administration of the Toradol patient reports mild improvement. Patient reports that he is ready to go home and does not want to wait for discharge paperwork. Patient eloped. Prior to leaving patient was prescribed muscle relaxers. Patient advised about the possible side effects of muscle relaxer. Case discussed with physician. Disposition Clinical Impression: Anxiety, Chronic neck pain Disposition: HOME SELF-CARE Condition: Stable Instructions (If sedation given, give patient instructions): Generalized Anxiety Disorder (ED) Additional Instructions: Please take prescribed medication as directed. Please follow up primary care. Please return to emergency department if symptoms worsen. Please follow with a counselor regarding anxiety. Prescriptions: Cyclobenzaprine [Flexeril] 5 mg PO TID PRN #15 tablet PRN Reason: Muscle Spasm Is patient prescribed a controlled substance at d/c from ED?: No Referrals: None,Stated [Primary Care Provider] - 1-2 days Time of Disposition: 19:36
== END 2019-06-08 19:26 | disposition home or self-care (01) ==
LOC: EC 17:28
DX: F41.9 Anxiety disorder, unspecified (principal); G89.29 Other chronic pain; M54.2 Cervicalgia; Z87.891 Personal history of nicotine dependence; Z87.828 Personal history of other (healed) physical injury and trauma
CPT/HCPCS: 99283; 96372; J1885

== ENCOUNTER 2019-06-22 19:10 | Observation (INO) | payer OTHER ==
[2019-06-22] MEDS ORDERED: SODIUM CHLORIDE 0.9% 1,000 ML IV STA (19:37)
--- NOTE | 2019-06-22 20:05 | CT ---
EXAMINATION TYPE: CT brain amado wo con DATE OF EXAM: 06/22/2019 COMPARISON: 02/17/2019 HISTORY: Fall injury CT DLP: 1373.5 mGycm Automated exposure control for dose reduction was used. TECHNIQUE: CT scan of the head and cervical spine are performed without contrast. FINDINGS: Ventricles and sulci appear normal. There is no mass effect nor midline shift. There is n o sign of intracranial hemorrhage. The calvarium appears intact. Cervical vertebra have fairly normal spacing and alignment. Posterior elements are intact. The skull base appears intact. There is no evidence of a fracture. There is minor spurring of the endplates in the cervical spine. IMPRESSION: Negative CT scan of the brain. Negative CT scan of the cervical spine. No sign of traumatic injury. M inor spurring in the cervical spine noted. No significant change.
[2019-06-22 20:16] LABS: Basophils # (A) 0.1 k/uL (0-0.2); Basophils % (A) 1 %; Eosinophils # (A) 0.1 k/uL (0-0.7); Eosinophils % (A) 1 %; HCT 47.2 % (39.0-53.0); HGB 15.8 gm/dL (13.0-17.5); Lymphocytes # (A) 1.2 k/uL (1.0-4.8); Lymphocytes % (A) 14 %; MCH 30.3 pg (25.0-35.0); MCHC 33.4 g/dL (31.0-37.0); MCV 90.6 fL (80.0-100.0); Mean Platelet Volume 6.8; Monocytes # (A) 0.3 k/uL (0-1.0); Monocytes % (A) 3 %; Neutrophils # (A) 7.1 k/uL (1.3-7.7); Neutrophils % (A) 79 %; Platelet Count 252 k/uL (150-450); RDW 12.8 % (11.5-15.5)
[2019-06-22 20:24] LABS: ALT 33 U/L (21-72); AST 37 U/L (17-59); Acetaminophen <10.0 ug/mL; African American GFR (CKD) >90 (>60 ml/min/1.73 sqM); Albumin 4.8 g/dL (3.5-5.0); Alkaline Phosphatase 49 U/L (38-126); Anion Gap 12 mmol/L; Blood Urea Nitrogen 10 mg/dL (9-20); Calcium 8.9 mg/dL (8.4-10.2); Carbon Dioxide 26 mmol/L (22-30); Chloride 108 mmol/L (98-107); Glucose 102 mg/dL (74-99); Magnesium 2.3 mg/dL (1.6-2.3); Phosphorus 4.7 mg/dL (2.5-4.5); Salicylate <1.0 mg/dL; Sodium 146 mmol/L (137-145); Total Bilirubin 1.1 mg/dL (0.2-1.3); Total Protein 7.8 g/dL (6.3-8.2)
--- NOTE | 2019-06-22 20:24 | ED ---
General Adult HPI - General Chief complaint: Alcohol Stated complaint: etoh Time Seen by Provider: 06/22/19 19:27 Source: patient, police, EMS, RN notes reviewed, old records reviewed Mode of arrival: EMS Limitations: altered mental status - History of Present Illness Initial comments: 38-year-old male patient presents to ED brought by EMS after he has discovered unconscious, reportedly agonal breathing. Patient was revived with Narcan. Patient is alert and oriented at this time. Patient reports that he was only taking alcohol today, denies any drug use. She reports that he is taking shots, patient does report that he fell and hit his head. Patient complains of mild amount of neck pain. Patient denies any other complaints at this time. Systemic: Pt denies fatigue, fever/chills, rash. Pt denies weakness, night sweats, weight loss. Neuro: Pt denies headache, visual disturbances, syncope or pre-syncope. HEENT: Pt denies ocular discharge or irritation, otalgia, rhinorrhea, pharyngitis or notable lymphadenopathy. Cardiopulmonary: Pt denies chest pain, SOB, heart palpitations, dyspnea on exertion. Abdominal/GI: Pt denies abdominal pain, n/v/d. : Pt denies dysuria, burning w/ urination, frequency/urgency. Denies new onset urinary or bowel incontinence. MSK: Pt denies myalgia, loss of strength or function in extremities. Neuro: Pt denies new onset weakness, paresthesias. - Related Data Home Medications Medication Instructions Recorded Confirmed No Known Home Medications 06/22/19 06/22/19 Allergies Allergy/AdvReac Type Severity Reaction Status Date / Time No Known Allergies Allergy Verified 06/22/19 19:43 Review of Systems ROS Statement: Those systems with pertinent positive or pertinent negative responses have been documented in the HPI. ROS Other: All systems not noted in ROS Statement are negative. Past Medical History Additional Past Medical History / Comment(s): neck injury, anxiety History of Any Multi-Drug Resistant Organisms: None Reported Past Surgical History: No Surgical Hx Reported Past Psychological History: ADD/ADHD, Anxiety, Depression Smoking Status: Former smoker Past Alcohol Use History: None Reported, Heavy, Occasional Past Drug Use History: None Reported General Exam - General Exam Comments Initial Comments: Constitutional: NAD, AOX3, Pt has pleasant affect. HEENT: NC/AT, trachea midline, neck supple, no lymphadenopathy. Posterior pharynx non erythematous, without exudates. External ears appear normal, without discharge. Mucous membranes moist. Eyes PERRLA, EOM intact. There is no scleral icterus. No pallor noted. Cardiopulmonary: RRR, no murmurs, rubs or gallops, no JVD noted. Lungs CTAB in anterior and posterior dumont. No peripheral edema. Abdominal exam: Abdomen soft and non-distended. Abdomen non-tender to palpation in all 4 quadrants. Bowel sounds active in LLQ. No hepatosplenomegaly. No ecchymosis Neuro: CN II-XII intact. No nuchal rigidity. No raccon eyes, no nolasco sign, no hemotympanum. No cervical spinal tenderness. MSK: No posterior calf tenderness bilaterally, homans sign negative bilaterally. Posterior tibialis and radial pulse +2 bilaterally. Sensation intact in upper and lower extremities. Full active ROM in upper and lower extremities, 5/5 stregnth. Limitations: altered mental status Course Vital Signs 06/22/19 06/22/19 19:18 20:30 Temperature 98.3 F Pulse Rate 70 89 Respiratory 18 14 Rate Blood Pressure 128/70 121/56 O2 Sat by Pulse 99 99 Oximetry Medical Decision Making - Medical Decision Making 38-year-old male patient presents to ED brought by EMS after he has discovered unconscious, reportedly agonal breathing. Patient was revived with Narcan. Patient is alert and oriented at this time. Patient reports that he was only taking alcohol today, denies any drug use. She reports that he is taking shots, patient does report that he fell and hit his head. Patient complains of mild amount of neck pain. Patient denies any other complaints at this time. Patient vital signs stable, afebrile. Physical exam did not bite pathology. Neurologic exam within normal limits. Investigations revealed serum alcohol 274. CT brain and C-spine did not display acute pathology. EKG not concerning for acute ischemia. Patient be admitted for alcohol intoxication. Case discussed with Dr. Spain. - Lab Data Result diagrams: 06/22/19 19:45 06/22/19 19:45 Lab Results 06/22/19 06/22/19 Range/Units 19:45 19:45 WBC 9.0 (3.8-10.6) k/uL RBC 5.20 (4.30-5.90) m/uL Hgb 15.8 (13.0-17.5) gm/dL Hct 47.2 (39.0-53.0) % MCV 90.6 (80.0-100.0) fL MCH 30.3 (25.0-35.0) pg MCHC 33.4 (31.0-37.0) g/dL RDW 12.8 (11.5-15.5) % Plt Count 252 (150-450) k/uL Neutrophils % 79 % Lymphocytes % 14 % Monocytes % 3 % Eosinophils % 1 % Basophils % 1 % Neutrophils # 7.1 (1.3-7.7) k/uL Lymphocytes # 1.2 (1.0-4.8) k/uL Monocytes # 0.3 (0-1.0) k/uL Eosinophils # 0.1 (0-0.7) k/uL Basophils # 0.1 (0-0.2) k/uL Sodium 146 H (137-145) mmol/L Potassium 4.0 (3.5-5.1) mmol/L Chloride 108 H (98-107) mmol/L Carbon Dioxide 26 (22-30) mmol/L Anion Gap 12 mmol/L BUN 10 (9-20) mg/dL Creatinine 0.98 (0.66-1.25) mg/dL Est GFR (CKD-EPI)AfAm >90 (>60 ml/min/1.73 sqM) Est GFR (CKD-EPI)NonAf >90 (>60 ml/min/1.73 sqM) Glucose 102 H (74-99) mg/dL Calcium 8.9 (8.4-10.2) mg/dL Phosphorus 4.7 H (2.5-4.5) mg/dL Magnesium 2.3 (1.6-2.3) mg/dL Total Bilirubin 1.1 (0.2-1.3) mg/dL AST 37 (17-59) U/L ALT 33 (21-72) U/L Alkaline Phosphatase 49 (38-126) U/L Total Protein 7.8 (6.3-8.2) g/dL Albumin 4.8 (3.5-5.0) g/dL Lipase 86 (23-300) U/L Salicylates <1.0 mg/dL Acetaminophen <10.0 ug/mL Serum Alcohol 274 H* mg/dL - EKG Data -: EKG Interpreted by Me (and Dr. Spain) EKG Comments: Ventricular rate 65, NM interval 170, QRS 124, QT/QTC 392/47. Normal sinus rhythm, nonspecific interventricular conduction delay. EKG. No concern for acute ischemia. Disposition Clinical Impression: Alcoholic intoxication Disposition: ADMITTED IP TO THIS HOSP Condition: Fair Is patient prescribed a controlled substance at d/c from ED?: No Referrals: None,Stated [Primary Care Provider] - 1-2 days
[2019-06-22 20:25] LABS: Alcohol 274 mg/dL
[2019-06-22] MEDS ORDERED: THIAMINE 100 MG/ML 2 ML VIAL IM STA (23:06)
[2019-06-22] MEDS ORDERED: LORazepam 2 MG/ML INJ IV PRN ×3 (23:06)
[2019-06-22] MEDS ORDERED: NALOXONE 0.4 MG/ML 1 ML VIAL IV PRN (23:07)
[2019-06-23] MEDS: SODIUM CHLORIDE 0.9% 1,000 ML IV SCH ×3 (00:07→19:55)
[2019-06-23 00:12] LABS: Appearance,Urine Clear (Clear); Bilirubin,Urine Negative (Negative); Blood,Urine Negative (Negative); Color,Urine Light Yellow; Glucose,Urine (UA) Negative (Negative); Ketones,Urine Negative (Negative); Leukocyte Esterase,Urine Negative (Negative); Nitrite,Urine Negative (Negative); Protein,Urine Negative (Negative); Specific Gravity,Urine 1.006 (1.001-1.035); Urobilinogen,Urine <2.0 mg/dL (<2.0)
[2019-06-23 00:40] LABS: Amphetamine Screen,Urine Not Detected (NotDetected); Benzodiazepines Screen,Urine Not Detected (NotDetected); Cocaine Screen,Urine Not Detected (NotDetected); Methadone Screen, Urine Not Detected (NotDetected); Opiate Screen,Urine Not Detected (NotDetected); Phencyclidine Screen,Urine Not Detected (NotDetected); Tricyclic Antidepressant,Urine Not Detected (NotDetected); Urn Cannabinoid Scrn Detected (NotDetected)
[2019-06-23 00:41] LABS: Barbiturate Screen,Urine Not Detected (NotDetected); Oxycodone Screen, Urine Not Detected (NotDetected)
[2019-06-23] MEDS: METOPROLOL TARTRATE 12.5 MG TAB PO SCH ×3 (11:54→22:20)
[2019-06-23] MEDS: DIAZEPAM 5 MG TAB PO SCH ×3 (11:54→22:20)
--- NOTE | 2019-06-23 13:35 | XR ---
EXAMINATION TYPE: XR Hip Complete RT DATE OF EXAM: 06/23/2019 CLINICAL HISTORY: Right hip pain after a fall TECHNIQUE: AP and frogleg views of the right hip are obtained. COMPARISON: None. FINDINGS: There is no acute fracture/dislocation evident in the right hip. The joint space in the r ight hip appears within normal limits. Small osteophytes are seen of the superior right acetabulum la terally. The overlying soft tissue appears unremarkable. IMPRESSION: There is no acute fracture or dislocation in the right hip. Small osteophytes of the rig ht superolateral acetabulum.
[2019-06-23] MEDS: THIAMINE 100 MG TAB PO SCH (17:53)
[2019-06-23] MEDS: ENOXAPARIN 40 MG/0.4 ML SYRINGE SQ SCH (20:23)
--- NOTE | 2019-06-23 22:57 | HP ---
HISTORY AND PHYSICAL DATE OF ADMISSION: 06/22/2019 DATE OF SERVICE: 06/23/2019 PRESENTING COMPLAINT: Intoxicated. HISTORY OF PRESENTING COMPLAINT: This is a 38-year-old patient who presented to the ER last night. I saw the patient this morning. He was discovered unconscious, had some agonal breathing. The patient was revived with Narcan. When he presented to the ER he was alert and oriented. The patient had been drinking alcohol, also taking shots, and he did take a fall. He had some pain in the right hip. No headache. Otherwise, no trouble walking. The patient does complain of being anxious and depressed. He used to take medications, stopped the same; requesting to see a psychiatrist. He is being admitted for the same. The patient has been drinking alcohol for about 2 years. The patient is employed, does floor work. REVIEW OF SYSTEMS: CONSTITUTIONAL: Tired. HEENT: None. RESPIRATORY: None. CARDIOVASCULAR: None. GASTROINTESTINAL: None. GENITOURINARY: None. MUSCULOSKELETAL: Pain in the right hip. DERMATOLOGICAL: None. HEMATOLOGICAL: None. LYMPHATICS: None. PSYCHIATRY: Anxiety, depression. NEUROLOGICAL: None. PAST MEDICAL HISTORY: Anxiety, depression. PAST SURGICAL HISTORY: None. PAST PSYCH HISTORY: ADHD, anxiety, depression. SOCIAL HISTORY: Drinks a significant amount of alcohol. Does floor work. Lives with his girlfriend. Does marijuana occasionally. FAMILY HISTORY: Reviewed; noncontributory to presentation. HOME MEDICATIONS: None. PHYSICAL EXAMINATION: Temperature 98.3, pulse 70, respiration 18, blood pressure 120/70, pulse ox 99% on room air. GENERAL APPEARANCE: Average build. Lying in bed, awake. EYES: Pupils equal. Conjunctivae normal. HEENT: External appearance of nose and ears normal. Oral cavity normal. NECK: JVD not raised. Mass not palpable. RESPIRATORY: Effort normal. LUNGS: Fair air entry. CARDIOVASCULAR: First and second sounds normal. No edema. ABDOMEN: Soft, non-tender. Liver and spleen not palpable. LYMPHATIC: No lymph node palpable in neck or axillae. PSYCHIATRY: Alert and oriented x3. Mood and affect slightly low. NEUROLOGICAL: Pupils equal. Cranial nerves grossly intact. Power and sensation grossly intact. MUSCULOSKELETAL: The patient does complain of some pain on moving the right hip, though patient is able to walk. EXTREMITIES: Tether on the right extremity. INVESTIGATIONS: White count 9, hemoglobin 15.8, platelets 252. Sodium 146, potassium 4, creatinine 0.98. UA negative. Urine drug screen positive for marijuana. Serum alcohol is 274. ASSESSMENT: 1. Acute alcohol intoxication. 2. Chronic alcohol dependence. 3. Right hip pain secondary to fall, probably blunt injury. Doubt fracture. 4. Anxiety, depression not otherwise specified. The patient is requesting psychiatry help. 5. Recreational marijuana use. 6. Patient has a tether on his right ankle. PLAN: Patient is put on Valium and a small dose of beta loulou for alcohol withdrawal. Psychiatry has been consulted. X-ray of the right hip has been ordered. Care was discussed with the patient. Will give Lovenox for DVT prophylaxis. Advance diet as tolerated. MMODL / IJN: [id number] /
[2019-06-24 05:14] VITALS: RESP 16
[2019-06-24] MEDS: SODIUM CHLORIDE 0.9% 1,000 ML IV SCH ×3 (05:25→15:00)
[2019-06-24] MEDS: ENOXAPARIN 40 MG/0.4 ML SYRINGE SQ SCH (08:51)
[2019-06-24] MEDS: THIAMINE 100 MG TAB PO SCH ×2 (08:51→17:48)
[2019-06-24] MEDS: METOPROLOL TARTRATE 12.5 MG TAB PO SCH ×2 (08:51→15:00)
[2019-06-24] MEDS: DIAZEPAM 5 MG TAB PO SCH ×2 (08:51→15:06)
[2019-06-24 12:06] VITALS: BP 121/58; PULSE 54; TEMP 98
[2019-06-24] MEDS ORDERED: IBUPROFEN 400 MG TAB PO STA (14:12)
[2019-06-24] MEDS ORDERED: IBUPROFEN 400 MG TAB PO PRN (14:12)
--- NOTE | 2019-06-25 09:11 | DS ---
DISCHARGE SUMMARY DATE OF ADMISSION: June 22, 2019. DATE OF DISCHARGE: June 24, 2019. FINAL DIAGNOSES: 1. Acute alcohol intoxication. 2. Chronic alcohol dependence. 3. Right hip blunt injury, no fracture. 4. Recreational marijuana use. 5. The patient has a tether on the right ankle. 6. Anxiety, depression not otherwise specified. HOSPITAL COURSE: The patient has been drinking alcohol for some time, drank quite a bit. Taking shots and presented after being intoxicated. Alcohol level was high. The patient was treated with Valium and beta loulou. Did not go into DTs. The patient also had injury to the right hip. X-ray was negative for any fracture. The patient is able to walk. Pain controlled. The patient was seen by the psychiatry team who were consulted and accepted the patient to [facility]. CONSULTATION: Psychiatry. PHYSICAL EXAMINATION: Temperature 98, pulse 54, respirations 16, blood pressure 120/58, pulse ox 98% on room air. Lungs are clear. Cardiovascular 1st and 2nd sounds normal. Psych: Depressed appearing. INVESTIGATIONS: White count 9, hemoglobin 15.8, BUN 10, creatinine 0.98. Urine drug screen positive for marijuana and serum alcohol on admission was 224. DISCHARGE MEDICATIONS: Antabuse. DISPOSITION: [facility] psychiatry unit. MMODL / IJN: [id number] /
== END 2019-06-24 18:32 ==
LOC: EC 19:10 → 3NMEDONC 23:25
PROVIDERS: ADMIT Hospitalist; ATTEND Hospitalist
DX: F10.229 Alcohol dependence with intoxication, unspecified (principal); F10.239 Alcohol dependence with withdrawal, unspecified; S79.911A Unspecified injury of right hip, initial encounter; M54.2 Cervicalgia; F41.9 Anxiety disorder, unspecified; F32.9 Major depressive disorder, single episode, unspecified; F90.9 Attention-deficit hyperactivity disorder, unspecified type; F12.90 Cannabis use, unspecified, uncomplicated; W19.XXXA Unspecified fall, initial encounter; Z87.891 Personal history of nicotine dependence; Y90.8 Blood alcohol level of 240 mg/100 ml or more
CPT/HCPCS: 96361 ×3; 96372 ×3; 96374; 99285; 36415; 93005; 80053; 83690; 83735; 84100; 85025; 81003; 80306; 83520; 73502; 72125; 70450; G0378 ×3; G0480 ×2; J2060; J3411; J1650 ×2; 80320; 80329

== ENCOUNTER 2019-06-24 18:47 | Inpatient (IN) | payer MEDICAID ==
[2019-06-24] MEDS ORDERED: ZIPRASIDONE 20 MG VIAL IM PRN (19:18)
[2019-06-24] MEDS ORDERED: MAGNESIUM HYDROXIDE 2,400 MG/10 ML CUP PO PRN (19:18)
[2019-06-24] MEDS ORDERED: MAG HYDROX/AL HYDROX/SIMETH 30 ML CUP PO PRN (19:18)
[2019-06-24] MEDS ORDERED: ACETAMINOPHEN TAB 325 MG TAB PO PRN (19:18)
[2019-06-25 01:34] LABS: Cholesterol 171 mg/dL (<200); Triglycerides 175 mg/dL (<150)
[2019-06-25 01:36] LABS: HDL Cholesterol 49 mg/dL (40-60); LDL Cholesterol,Calculated 87 mg/dL (0-99)
[2019-06-25 02:25] VITALS: BMI 26.6
[2019-06-25] MEDS: LORazepam 1 MG TAB PO PRN ×2 (09:50→18:08)
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
[2019-06-25] MEDS: buPROPion XL 150 MG TAB.ER.24H PO SCH (12:25)
[2019-06-25] MEDS: NICOTINE 21MG/24HR PATCH TRANSDERM SCH (12:35)
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
[2019-06-25] MEDS: BACITRACIN 500 UNIT/GM OINT 28.4 GM TUBE TOPICAL SCH (20:59)
[2019-06-25] MEDS ORDERED: OLANZapine 2.5 MG TAB PO SCH (21:00)
[2019-06-26] MEDS: buPROPion XL 150 MG TAB.ER.24H PO SCH (08:03)
[2019-06-26] MEDS: NICOTINE 21MG/24HR PATCH TRANSDERM SCH (08:03)
[2019-06-26] MEDS: BACITRACIN 500 UNIT/GM OINT 28.4 GM TUBE TOPICAL SCH ×2 (08:04→21:43)
[2019-06-26] MEDS: LORazepam 1 MG TAB PO PRN ×2 (08:05→15:30)
[2019-06-26] MEDS ORDERED: NICOTINE 21MG/24HR PATCH TRANSDERM SCH (09:00)
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
[2019-06-26] MEDS: GABAPENTIN 100 MG CAP PO SCH ×3 (10:17→21:42)
[2019-06-26] MEDS: MULTIVITAMINS, THERA 1 EACH TAB PO SCH (10:17)
[2019-06-26 10:29] LABS: Hemoglobin A1C 4.9 % (4.0-6.0)
[2019-06-27 06:45] VITALS: BP 112/65; PULSE 63; RESP 20; TEMP 98.1
[2019-06-27] MEDS: BACITRACIN 500 UNIT/GM OINT 28.4 GM TUBE TOPICAL SCH ×2 (08:56→21:30)
[2019-06-27] MEDS: buPROPion XL 300 MG TAB.ER.24H PO SCH (08:56)
[2019-06-27] MEDS: GABAPENTIN 100 MG CAP PO SCH ×3 (08:56→21:28)
[2019-06-27] MEDS: NICOTINE 21MG/24HR PATCH TRANSDERM SCH (08:56)
[2019-06-27] MEDS: MULTIVITAMINS, THERA 1 EACH TAB PO SCH (08:56)
[2019-06-27] MEDS: LORazepam 1 MG TAB PO PRN ×3 (08:58→21:30)
--- NOTE | 2019-06-27 10:21 | P.PN ---
Progress Note - Text Interval history: The patient is found in the hallway he follows me to an interview room. He indicates his mood is happy. He states that he was able to sleep last night and appetite stable. He indicates he's been attending group. We reviewed his psychotropic medication. He has no questions or concerns about those he feels that they are appropriate and feels benefit already. He describes plans of getting out of here completing his 2 months on the tether. 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 Mental status exam: The patient is alert he is cooperative he is directable. Hygiene and grooming good he is dressed in his own clothing. Eye contact is appropriate speech is fluent spontaneous nonpressured. He does have a hyperactive quality he frugally moves while seated in the chair. He demonstrates no verbal or physical aggressiveness. He is easily directable. He reports his mood is happy. Affect is constricted. He is able to answer questions in a linear fashion. Was spontaneous speech he'll demonstrate some circumstantial thinking possibly tangential. He does not appear to be hypomanic or manic however. He is reporting no auditory or visual hallucinations he endorses no ideas of reference he endorses no paranoid persecutory thoughts, no thought insertion or control. He speaks of Gerardo philosophy and how he applies it to his life. Insight and judgment slowly improving. The patient will continue his current psychotropic medications. He indicates that he is feeling better. We will continue to monitor for any symptoms of psychosis. I will confer with the treatment team regarding his progress over the last 24 hours. He indicates that he is motivated for discharge. Vital signs reviewed.
[2019-06-28] MEDS: LORazepam 1 MG TAB PO PRN (06:52)
[2019-06-28] MEDS: BACITRACIN 500 UNIT/GM OINT 28.4 GM TUBE TOPICAL SCH (08:20)
[2019-06-28] MEDS: GABAPENTIN 100 MG CAP PO SCH (08:20)
[2019-06-28] MEDS: buPROPion XL 300 MG TAB.ER.24H PO SCH (08:20)
[2019-06-28] MEDS: NICOTINE 21MG/24HR PATCH TRANSDERM SCH (08:20)
[2019-06-28] MEDS: MULTIVITAMINS, THERA 1 EACH TAB PO SCH (08:20)
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
== END 2019-06-28 12:16 | disposition home or self-care (01) | DRG 885 ==
LOC: 3MHU 18:59
PROVIDERS: ADMIT Psychiatry & Neurology Psychiatry; ATTEND Psychiatry & Neurology Psychiatry
DX: F33.2 Major depressive disorder, recurrent severe without psychotic features (principal); R45.851 Suicidal ideations; F10.229 Alcohol dependence with intoxication, unspecified; F12.90 Cannabis use, unspecified, uncomplicated; F41.9 Anxiety disorder, unspecified; F43.10 Post-traumatic stress disorder, unspecified; F90.9 Attention-deficit hyperactivity disorder, unspecified type; M25.551 Pain in right hip; Z87.891 Personal history of nicotine dependence; W19.XXXA Unspecified fall, initial encounter
CPT/HCPCS: 80061; 83036

== ENCOUNTER 2019-07-22 08:21 | Emergency (ER) | payer OTHER ==
[2019-07-22 08:25] VITALS: BP 136/88; PULSE 95; RESP 18; TEMP 98
[2019-07-22] MEDS ORDERED: ACET/COD 300 MG/30 MG STARTER PACK 6 TAB BTL PO STA (08:35)
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
== END 2019-07-22 08:45 | disposition home or self-care (01) ==
LOC: EC 08:21
DX: M79.10 Myalgia, unspecified site (principal); M54.2 Cervicalgia; Z87.891 Personal history of nicotine dependence; Z87.828 Personal history of other (healed) physical injury and trauma; Z79.899 Other long term (current) drug therapy
CPT/HCPCS: 99283

== ENCOUNTER 2019-08-09 13:24 | Emergency (ER) | payer OTHER ==
[2019-08-09 14:07] VITALS: BP 115/77; PULSE 72; RESP 20; TEMP 98.3
[2019-08-09] MEDS ORDERED: LORazepam 1 MG TAB PO STA (14:33)
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
== END 2019-08-09 14:54 | disposition home or self-care (01) ==
LOC: EC 13:24
DX: F41.9 Anxiety disorder, unspecified (principal); Z87.891 Personal history of nicotine dependence
CPT/HCPCS: 99282

== ENCOUNTER 2019-09-03 09:16 | Emergency (ER) | payer OTHER ==
[2019-09-03] MEDS ORDERED: KETOROLAC 60 MG/2 ML VIAL IM STA (09:36)
[2019-09-03] MEDS ORDERED: ORPHENADRINE 30 MG/ML 2 ML VIAL IM STA (09:36)
[2019-09-03] MEDS ORDERED: ACET/COD 300 MG/30 MG STARTER PACK 6 TAB BTL PO STA (09:36)
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
[2019-09-03 10:51] VITALS: BP 132/76; PULSE 70; RESP 16
== END 2019-09-03 10:47 | disposition home or self-care (01) ==
LOC: EC 09:16
DX: G89.29 Other chronic pain (principal); M62.838 Other muscle spasm; Z87.891 Personal history of nicotine dependence
CPT/HCPCS: 99284; 96372 ×2; J2360; J1885

== ENCOUNTER 2019-09-18 05:56 | Emergency (ER) | payer OTHER ==
[2019-09-18 06:07] VITALS: BP 133/78; PULSE 79; RESP 18; TEMP 97.9
[2019-09-18] MEDS ORDERED: ACET/COD 300 MG/30 MG STARTER PACK 6 TAB BTL PO STA (06:15)
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
== END 2019-09-18 06:27 | disposition home or self-care (01) ==
LOC: EC 05:56
DX: G89.29 Other chronic pain (principal); M54.2 Cervicalgia; M62.830 Muscle spasm of back; Z87.891 Personal history of nicotine dependence
CPT/HCPCS: 99283

== ENCOUNTER 2019-10-14 15:14 | Emergency (ER) | payer OTHER ==
[2019-10-14 15:26] VITALS: BP 121/66; PULSE 67; TEMP 97.7
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
[2019-10-14 15:44] VITALS: RESP 20
== END 2019-10-14 15:44 | disposition home or self-care (01) ==
LOC: EC 15:14
DX: G89.29 Other chronic pain (principal); M54.2 Cervicalgia; Z87.891 Personal history of nicotine dependence; Z87.828 Personal history of other (healed) physical injury and trauma
CPT/HCPCS: 99283

== ENCOUNTER 2019-11-18 11:03 | Emergency (ER) | payer OTHER ==
[2019-11-18 11:43] VITALS: BP 140/77; PULSE 80
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
[2019-11-18 12:19] VITALS: RESP 20
== END 2019-11-18 12:19 | disposition home or self-care (01) ==
LOC: EC 11:03
DX: F41.1 Generalized anxiety disorder (principal); Z76.0 Encounter for issue of repeat prescription; Z87.891 Personal history of nicotine dependence; Z91.14 Patient's other noncompliance with medication regimen
CPT/HCPCS: 99283

== ENCOUNTER 2019-12-15 21:09 | Emergency (ER) | payer OTHER ==
[2019-12-15 21:14] VITALS: RESP 18
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
[2019-12-15 22:05] LABS: Appearance,Urine Clear (Clear); Basophils % (A) 0 %; Bilirubin,Urine Negative (Negative); Blood,Urine Negative (Negative); Color,Urine Yellow; Eosinophils # (A) 0.2 k/uL (0-0.7); Eosinophils % (A) 3 %; Glucose,Urine (UA) Negative (Negative); HCT 46.3 % (39.0-53.0); HGB 15.8 gm/dL (13.0-17.5); Ketones,Urine 1+ (Negative); Leukocyte Esterase,Urine Negative (Negative); Lymphocytes % (A) 20 %; MCH 30.8 pg (25.0-35.0); MCHC 34.2 g/dL (31.0-37.0); Mean Platelet Volume 7.4; Monocytes # (A) 0.6 k/uL (0-1.0); Monocytes % (A) 6 %; Neutrophils # (A) 6.9 k/uL (1.3-7.7); Neutrophils % (A) 70 %; Nitrite,Urine Negative (Negative); PH, Urine 6.5 (5.0-8.0); Platelet Count 218 k/uL (150-450); Protein,Urine Negative (Negative); RBC 5.14 m/uL (4.30-5.90); RDW 12.3 % (11.5-15.5); Specific Gravity,Urine 1.023 (1.001-1.035); Urobilinogen,Urine <2.0 mg/dL (<2.0); WBC 9.9 k/uL (3.8-10.6)
[2019-12-15 22:26] LABS: ALT 21 U/L (4-49); AST 33 U/L (17-59); African American GFR (CKD) >90 (>60 ml/min/1.73 sqM); Albumin 4.3 g/dL (3.5-5.0); Alkaline Phosphatase 54 U/L (38-126); Amylase 48 U/L (30-110); Anion Gap 8 mmol/L; Blood Urea Nitrogen 15 mg/dL (9-20); Calcium 9.4 mg/dL (8.4-10.2); Carbon Dioxide 26 mmol/L (22-30); Chloride 101 mmol/L (98-107); Glucose 75 mg/dL (74-99); Non-African American GFR(CKD) >90 (>60 ml/min/1.73 sqM); Potassium 4.2 mmol/L (3.5-5.1); Sodium 135 mmol/L (137-145); Total Bilirubin 1.1 mg/dL (0.2-1.3); Total Protein 7.1 g/dL (6.3-8.2)
[2019-12-15] MEDS ORDERED: KETOROLAC 30 MG/ML 1 ML VIAL IVP STA (22:59)
[2019-12-15 23:08] VITALS: BP 129/80; PULSE 90; TEMP 98
== END 2019-12-15 23:09 | disposition home or self-care (01) ==
LOC: EC 21:09
DX: M54.5 Low back pain (principal); Z87.891 Personal history of nicotine dependence; Z87.828 Personal history of other (healed) physical injury and trauma
CPT/HCPCS: 36415; 80053; 82150; 83690; 85025; 81003; 96374; 99283; J1885

== ENCOUNTER 2020-03-26 22:08 | Emergency (ER) | payer OTHER ==
[2020-03-26] MEDS ORDERED: LORazepam 2 MG/ML INJ IV STA (23:13)
[2020-03-27 00:01] LABS: Amphetamine Screen,Urine Not Detected (NotDetected); Barbiturate Screen,Urine Not Detected (NotDetected); Benzodiazepines Screen,Urine Not Detected (NotDetected); Cocaine Screen,Urine Not Detected (NotDetected); Methadone Screen, Urine Not Detected (NotDetected); Opiate Screen,Urine Not Detected (NotDetected); Oxycodone Screen, Urine Not Detected (NotDetected); Phencyclidine Screen,Urine Not Detected (NotDetected); Tricyclic Antidepressant,Urine Not Detected (NotDetected); Urn Cannabinoid Scrn Not Detected (NotDetected)
[2020-03-27] MEDS ORDERED: IBUPROFEN 400 MG TAB PO STA (03:54)
[2020-03-27] MEDS ORDERED: traMADol 50 MG TAB PO STA (03:54)
[2020-03-27 04:10] VITALS: BP 116/65; PULSE 71; RESP 16; TEMP 97.8
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
== END 2020-03-27 04:52 | disposition other institution (70) ==
LOC: EC 22:08
DX: F10.129 Alcohol abuse with intoxication, unspecified (principal); Y90.9 Presence of alcohol in blood, level not specified; Z87.891 Personal history of nicotine dependence
CPT/HCPCS: 82075; 80306; 99285; J2060

== ENCOUNTER 2020-04-20 10:03 | Emergency (ER) | payer OTHER ==
[2020-04-20 10:20] VITALS: BP 142/91; PULSE 65; RESP 18
[2020-04-20] MEDS ORDERED: SODIUM CHLORIDE 0.9% 1,000 ML IV STA (10:43)
[2020-04-20] MEDS ORDERED: KETOROLAC 30 MG/ML 1 ML VIAL IVP STA (10:44)
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
[2020-04-20 11:32] LABS: Basophils % (A) 0 %; Eosinophils # (A) 0.3 k/uL (0-0.7); Eosinophils % (A) 4 %; HCT 51.9 % (39.0-53.0); HGB 17.7 gm/dL (13.0-17.5); Lymphocytes # (A) 0.9 k/uL (1.0-4.8); Lymphocytes % (A) 13 %; MCH 32.3 pg (25.0-35.0); MCHC 34.2 g/dL (31.0-37.0); MCV 94.3 fL (80.0-100.0); Mean Platelet Volume 7.6; Monocytes # (A) 0.6 k/uL (0-1.0); Monocytes % (A) 9 %; Neutrophils % (A) 73 %; Platelet Count 193 k/uL (150-450); RDW 13.3 % (11.5-15.5); WBC 6.9 k/uL (3.8-10.6)
[2020-04-20 11:43] LABS: ALT 27 U/L (4-49); AST 35 U/L (17-59); African American GFR (CKD) >90 (>60 ml/min/1.73 sqM); Albumin 4.5 g/dL (3.5-5.0); Alkaline Phosphatase 74 U/L (38-126); Amylase 69 U/L (30-110); Anion Gap 8 mmol/L; Blood Urea Nitrogen 10 mg/dL (9-20); Calcium 9.3 mg/dL (8.4-10.2); Carbon Dioxide 27 mmol/L (22-30); Chloride 101 mmol/L (98-107); Glucose 97 mg/dL (74-99); Magnesium 2.1 mg/dL (1.6-2.3); Non-African American GFR(CKD) >90 (>60 ml/min/1.73 sqM); Potassium 4.4 mmol/L (3.5-5.1); Sodium 136 mmol/L (137-145); Total Bilirubin 1.7 mg/dL (0.2-1.3); Total Protein 7.7 g/dL (6.3-8.2)
[2020-04-20 12:58] VITALS: TEMP 98.7
== END 2020-04-20 12:25 | disposition home or self-care (01) ==
LOC: EC 10:03
DX: E86.0 Dehydration (principal); F10.20 Alcohol dependence, uncomplicated; E80.7 Disorder of bilirubin metabolism, unspecified; R10.9 Unspecified abdominal pain; Z87.891 Personal history of nicotine dependence
CPT/HCPCS: 36415; 80053; 82150; 83690; 83735; 85025; 96374; 96361; 99284; J1885

== ENCOUNTER 2020-11-11 03:31 | Emergency (ER) | payer OTHER ==
[2020-11-11 03:41] VITALS: BP 144/81; PULSE 144; RESP 18; TEMP 98.5
[2020-11-11] MEDS ORDERED: AMOXIC-POT CLAV 875-125MG 1 EACH TAB PO STA (03:52)
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
== END 2020-11-11 04:06 | disposition home or self-care (01) ==
LOC: EC 03:31
DX: S81.832A Puncture wound without foreign body, left lower leg, initial encounter (principal); W54.0XXA Bitten by dog, initial encounter
CPT/HCPCS: 99283

== ENCOUNTER 2020-12-12 08:36 | Emergency (ER) | payer OTHER ==
[2020-12-12 08:40] VITALS: RESP 18
[2020-12-12] MEDS ORDERED: DIAZEPAM 5 MG/ML 2 ML INJ IM ONE (09:00)
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
[2020-12-12 09:46] VITALS: BP 128/88; PULSE 62; TEMP 97.9
== END 2020-12-12 09:46 | disposition home or self-care (01) ==
LOC: EC 08:36
DX: F41.9 Anxiety disorder, unspecified (principal)
CPT/HCPCS: 99283; 96372; J3360

== ENCOUNTER 2020-12-17 01:06 | Inpatient (IN) | payer MEDICAID, OTHER ==
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
[2020-12-17 01:58] LABS: Amphetamine Screen,Urine Not Detected (NotDetected); Barbiturate Screen,Urine Not Detected (NotDetected); Benzodiazepines Screen,Urine Not Detected (NotDetected); Cocaine Screen,Urine Not Detected (NotDetected); Methadone Screen, Urine Not Detected (NotDetected); Opiate Screen,Urine Not Detected (NotDetected); Oxycodone Screen, Urine Not Detected (NotDetected); Phencyclidine Screen,Urine Not Detected (NotDetected); Tricyclic Antidepressant,Urine Not Detected (NotDetected); Urn Cannabinoid Scrn Detected (NotDetected)
[2020-12-17] MEDS ORDERED: HALOPERIDOL LACTATE 5 MG/ML 1 ML VIAL IM PRN (04:22)
[2020-12-17] MEDS ORDERED: LORazepam 2 MG/ML INJ IM PRN ×2 (04:22→04:30)
[2020-12-17] MEDS ORDERED: ACETAMINOPHEN TAB 325 MG TAB PO PRN (04:22)
[2020-12-17] MEDS ORDERED: MAG HYDROX/AL HYDROX/SIMETH 30 ML CUP PO PRN (04:22)
[2020-12-17] MEDS ORDERED: haloperidoL 5 MG TAB PO PRN (04:22)
[2020-12-17] MEDS ORDERED: LORazepam 1 MG TAB PO PRN (04:30)
[2020-12-17 06:47] LABS: Basophils % (A) 1 %; Eosinophils # (A) 0.2 k/uL (0-0.7); Eosinophils % (A) 3 %; HCT 49.3 % (39.0-53.0); HGB 16.8 gm/dL (13.0-17.5); Lymphocytes # (A) 1.9 k/uL (1.0-4.8); Lymphocytes % (A) 22 %; MCH 31.9 pg (25.0-35.0); MCHC 34.2 g/dL (31.0-37.0); MCV 93.2 fL (80.0-100.0); Mean Platelet Volume 6.7; Monocytes # (A) 0.8 k/uL (0-1.0); Monocytes % (A) 10 %; Neutrophils # (A) 5.3 k/uL (1.3-7.7); Neutrophils % (A) 63 %; Platelet Count 235 k/uL (150-450); RBC 5.28 m/uL (4.30-5.90); RDW 12.4 % (11.5-15.5); WBC 8.4 k/uL (3.8-10.6)
[2020-12-17 07:00] LABS: ALT 34 U/L (4-49); AST 37 U/L (17-59); African American GFR (CKD) >90 (>60 ml/min/1.73 sqM); Albumin 3.6 g/dL (3.5-5.0); Alkaline Phosphatase 61 U/L (38-126); Anion Gap 8 mmol/L; Bilirubin,Unconjugated 1.1 mg/dL (0.0-1.1); Blood Urea Nitrogen 19 mg/dL (9-20); Carbon Dioxide 27 mmol/L (22-30); Chloride 101 mmol/L (98-107); Cholesterol 153 mg/dL (<200); Glucose 103 mg/dL (74-99); HDL Cholesterol 59 mg/dL (40-60); LDL Cholesterol,Calculated 78 mg/dL (0-99); Non-African American GFR(CKD) 89 (>60 ml/min/1.73 sqM); Potassium 4.2 mmol/L (3.5-5.1); Sodium 136 mmol/L (137-145); Total Bilirubin 1.1 mg/dL (0.2-1.3); Total Protein 5.9 g/dL (6.3-8.2); Triglycerides 80 mg/dL (<150)
[2020-12-17] MEDS: LORazepam 1 MG TAB PO PRN ×2 (08:14→17:40)
[2020-12-17] MEDS ORDERED: PALIPERIDONE 3 MG TAB.ER.24 PO STA (09:56)
[2020-12-17] MEDS: GABAPENTIN 300 MG CAP PO SCH ×3 (10:22→23:58)
[2020-12-17] MEDS ORDERED: NICOTINE POLACRILEX 2 MG GUM BUCCAL PRN (11:11)
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
[2020-12-17 13:46] LABS: Hemoglobin A1C 4.8 % (4.0-6.0)
--- NOTE | 2020-12-17 16:33 | CONS ---
CONSULTATION CHIEF COMPLAINT: Major depression. HISTORY OF PRESENT ILLNESS: This is another admission for this 40-year-old white male who has been a frequent patient in the office. He frequently comes in seeking analgesics. When he was last seen, which was recently, he was on Wellbutrin. He apparently became progressively depressed and was brought to the emergency room. REVIEW OF SYSTEMS: Review of systems was not obtainable because he was with the psychiatrist at the time. He has a history of bipolar disorder, low back pain, anxiety, vitamin D deficiency. Past medical history, family history and personal and social histories are detailed in his admitting note. He used to smoke but does not any longer. He states he does not drink. PHYSICAL EXAMINATION: Blood pressure 131/70 with a pulse of 68, respirations of 15. He is afebrile. In general, he appeared to be well developed, well nourished, in no acute distress. The remainder of exam was deferred for the time being in that he was with the psychiatrist. IMPRESSION: 1. Major depression. 2. History of analgesic abuse. 3. Vitamin D deficiency. 4. History of bipolar depression. 5. History of episodic hypertension. RECOMMENDATIONS: None. MMODL / IJN: [id number] /
[2020-12-17] MEDS: MELATONIN 5 MG TABLET PO SCH (23:58)
[2020-12-18] MEDS: LORazepam 1 MG TAB PO PRN ×2 (07:14→16:10)
[2020-12-18] MEDS: PALIPERIDONE 3 MG TAB.ER.24 PO SCH (08:08)
[2020-12-18] MEDS: GABAPENTIN 300 MG CAP PO SCH ×3 (08:08→22:06)
[2020-12-18] MEDS: NICOTINE POLACRILEX 2 MG GUM BUCCAL PRN (08:09)
[2020-12-18] MEDS: NICOTINE 14MG/24HR PATCH TRANSDERM SCH ×2 (10:01→16:10)
[2020-12-18] MEDS: MAGNESIUM HYDROXIDE 2,400 MG/10 ML CUP PO PRN (10:01)
--- NOTE | 2020-12-18 10:32 | P.PN ---
Progress Note - Text Progress Note Date: 12/18/20 Interval History: Patient was seen resting in bed and was directable and agreeable to speak with technical writer and editor in the office. Patient reports that he is feeling tired today but overall his mood has improved. He is currently not reporting any suicidal or homicidal ideation, intention, and/or plan. He is not reporting any auditory or visual hallucinations. He reports that he is not expressing these delusions that people are able to read his mind at this time. Despite initially denying any tobacco or substance use during the initial psychiatric interview, the patient does admit that he used methamphetamine shortly before this admission. He also still reports that he started smoking approximately a pack per day recently. He continues to endorse anger and frustration with his ex-girlfriend. He states that upon discharge he plans to leave the state. He has been adheren t with his medications and is only reporting sedation as a side effect. Mental Status Exam: General Appearance: Patient appears to be stated age is alert, directable, and attempts to cooperate. Patient appears to have fair hygiene and grooming. Tall and physically fit build. Behavior: Patient is seated without any agitated behavior. Psychomotor activity is elevated. Eye contact is appropriate. Speech: Patient's speech is fluent and nonpressured. Mood/Affect: Patient reports their mood is "feeling tired." Affect is mood congruent and constricted. Suicidality/Homicidality: Patient denies having any homicidal ideation intent or plan. Denies any suicidal ideations intent or plan Perceptions: Patient denies any visual hallucinations and denies any auditory hallucinations Though content/process: Patient is not endorsing any delusional thought content today. Thought process appears linear and logical today. Memory and concentration: AOX3, grossly intact for the purposes of this session. Can spell "WORLD" backwards Judgment and insight: poor Assessment Bipolar disorder, type II, current episode manic Alcohol use disorder, binge type Anxiety Disorder, unspecified Methamphetamine abuse Plan: -Patient continues to meet criteria for inpatient psychiatric admission for symptom stabilization and safety. Patient has signed adult voluntary form and medication consent and was placed in patient's chart. -Medications: Gabapentin 300 mg by mouth 3 times a day for off label use for anxiety Invega 3 mg by mouth daily for management of bipolar disorder Melatonin 10 mg by mouth at bedtime for insomnia Catapres 0.1 mg twice daily for ADHD / withdrawal. -When necessary Ativan and Geodon for agitation/aggression. -NRT - nicorette gum -SW on board for discharge planning. Encouraged the patient to participate in milieu.
[2020-12-18] MEDS ORDERED: cloNIDine HCL 0.1 MG TAB PO STA (11:03)
[2020-12-18] MEDS: MELATONIN 5 MG TABLET PO SCH (22:06)
[2020-12-18] MEDS: cloNIDine HCL 0.1 MG TAB PO SCH (22:06)
[2020-12-19] MEDS: SENNOSIDES-DOCUSATE SODIUM 1 EACH TAB PO STA ×2 (05:05→05:20)
[2020-12-19] MEDS: LORazepam 1 MG TAB PO PRN ×3 (05:19→16:17)
[2020-12-19] MEDS: NICOTINE 14MG/24HR PATCH TRANSDERM SCH (09:35)
[2020-12-19] MEDS: PALIPERIDONE 3 MG TAB.ER.24 PO SCH (09:36)
[2020-12-19] MEDS: GABAPENTIN 300 MG CAP PO SCH ×3 (09:36→20:05)
[2020-12-19] MEDS: cloNIDine HCL 0.1 MG TAB PO SCH ×2 (09:36→20:05)
[2020-12-19 09:39] VITALS: RESP 20
--- NOTE | 2020-12-19 10:28 | P.PN ---
Progress Note - Text Progress Note Date: 12/19/20 Interval History: Patient was seen resting in bed and was directable and agreeable to speak with music writer in the office. The patient states that he is feeling better. He is not reporting any suicidal or homicidal ideation, intention, and/or plan. He is not reporting any auditory or visual hallucinations. Denying any paranoia or delusions today. The patient states he feels like his attention span has improved since being started on Wednesday. Despite this, the patient appears to be medication seeking often asking for medications to help him with focus or to help him with constipation. The patient expressed that he has not had a bowel movement over the last 8 days. Despite this, the patient is not reporting any abdominal pain. He did receive Senokot last night. He has constant been requesting charcoal or other medications for constipation including bowel prep. He has been adherent with his medications and is not reporting any significant side effects at this time. Mental Status Exam: General Appearance: Patient appears to be stated age is alert, directable, and attempts to cooperate. Patient appears to have fair hygiene and grooming. Tall and physically fit build. Behavior: Patient is seated without any agitated behavior. Psychomotor activity is elevated. Eye contact is appropriate. Speech: Patient's speech is fluent and nonpressured. Mood/Affect: Patient reports their mood is "feeling better." Affect is mood congruent and constricted. Suicidality/Homicidality: Patient denies having any homicidal ideation intent or plan. Denies any suicidal ideations intent or plan Perceptions: Patient denies any visual hallucinations and denies any auditory hallucinations Though content/process: Patient is not endorsing any delusional thought content today. Thought process appears linear and logical today. Some fixation on medications. Memory and concentration: AOX3, grossly intact for the purposes of this session. Can spell "WORLD" backwards Judgment and insight: poor Assessment Bipolar disorder, type II, current episode hypomanic Alcohol use disorder, binge type Anxiety Disorder, unspecified Methamphetamine abuse Nicotine dependence Plan: -Patient continues to meet criteria for inpatient psychiatric admission for symptom stabilization and safety. Patient has signed adult voluntary form and medication consent and was placed in patient's chart. -Medications: Gabapentin 300 mg by mouth 3 times a day for off label use for anxiety Invega 3 mg by mouth daily for management of bipolar disorder Melatonin 10 mg by mouth at bedtime for insomnia Catapres 0.1 mg twice daily for ADHD / withdrawal. -When necessary Ativan and Geodon for agitation/aggression. -NRT - nicorette gum -SW on board for discharge planning. Encouraged the patient to participate in milieu. -Anticipate discharge for tomorrow.
[2020-12-19] MEDS: MAGNESIUM HYDROXIDE 2,400 MG/10 ML CUP PO PRN (16:17)
--- NOTE | 2020-12-19 19:18 | PN ---
PROGRESS NOTE CHIEF COMPLAINT: Bipolar disorder with noelle. HISTORY OF PRESENT ILLNESS: This gentleman is stable medically. He is quite agitated and manic. PHYSICAL EXAMINATION: Unremarkable. Head, ears, eyes, nose, mouth and throat are normal. Chest is clear. Cardiac exam demonstrates slight tachycardia. Abdomen is soft. IMPRESSION: 1. Major depression. 2. Bipolar disorder with noelle. PLAN: Will follow for any medical problems that may or may not develop and see him after he is out of the hospital. MMODL / IJN: [id number] /
[2020-12-19] MEDS: SENNOSIDES-DOCUSATE SODIUM 1 EACH TAB PO SCH (20:05)
[2020-12-19] MEDS: MELATONIN 5 MG TABLET PO SCH (20:05)
[2020-12-20] MEDS: NICOTINE POLACRILEX 2 MG GUM BUCCAL PRN (06:31)
[2020-12-20] MEDS: LORazepam 1 MG TAB PO PRN (06:31)
[2020-12-20] MEDS: NICOTINE 14MG/24HR PATCH TRANSDERM SCH (07:44)
[2020-12-20] MEDS: GABAPENTIN 300 MG CAP PO SCH (07:44)
[2020-12-20] MEDS: PALIPERIDONE 3 MG TAB.ER.24 PO SCH (07:44)
[2020-12-20] MEDS: cloNIDine HCL 0.1 MG TAB PO SCH (07:44)
[2020-12-20] MEDS: SENNOSIDES-DOCUSATE SODIUM 1 EACH TAB PO SCH (07:45)
[2020-12-20 07:48] VITALS: BP 104/56; PULSE 65
[2020-12-20] MEDS ORDERED: MULTIVITAMINS, THERA 1 EACH TAB PO SCH (10:00)
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
[2020-12-20 12:48] VITALS: TEMP 99
== END 2020-12-20 12:05 | disposition home or self-care (01) | DRG 885 ==
LOC: EC 01:06 → 3MHU 04:13
PROVIDERS: ADMIT Psychiatry & Neurology Psychiatry; ATTEND Psychiatry & Neurology Psychiatry
DX: F31.81 Bipolar II disorder (principal); R45.851 Suicidal ideations; F15.10 Other stimulant abuse, uncomplicated; Z20.822 Contact with and (suspected) exposure to COVID-19; F10.10 Alcohol abuse, uncomplicated; F12.90 Cannabis use, unspecified, uncomplicated; G47.00 Insomnia, unspecified; E55.9 Vitamin D deficiency, unspecified; M54.5 Low back pain; F41.9 Anxiety disorder, unspecified; F90.9 Attention-deficit hyperactivity disorder, unspecified type; I10 Essential (primary) hypertension; R45.87 Impulsiveness; K59.00 Constipation, unspecified; F17.210 Nicotine dependence, cigarettes, uncomplicated; Z71.6 Tobacco abuse counseling; Z59.0 Homelessness; Z87.828 Personal history of other (healed) physical injury and trauma; Z81.4 Family history of other substance abuse and dependence
CPT/HCPCS: 80053; 80061; 80306; 82075; 82248; 83036; 84443; 85025; 87635; 99285

== ENCOUNTER 2020-12-22 21:22 | Emergency (ER) | payer OTHER ==
[2020-12-22 21:30] VITALS: BP 125/74; PULSE 75; RESP 16
[2020-12-22 21:42] VITALS: TEMP 97.9
[2020-12-22] MEDS ORDERED: LORazepam 2 MG/ML INJ IM STA (22:03)
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
[2020-12-22] MEDS ORDERED: cloNIDine HCL 0.1 MG TAB PO STA (23:18)
[2020-12-22] MEDS ORDERED: PALIPERIDONE 3 MG TAB.ER.24 PO STA (23:18)
[2020-12-22] MEDS ORDERED: LORazepam 1 MG TAB PO STA (23:19)
[2020-12-22] MEDS ORDERED: GABAPENTIN 300 MG CAP PO STA (23:19)
== END 2020-12-23 00:20 | disposition home or self-care (01) ==
LOC: EC 21:22
DX: F33.2 Major depressive disorder, recurrent severe without psychotic features (principal); S90.31XA Contusion of right foot, initial encounter; F41.9 Anxiety disorder, unspecified; F10.129 Alcohol abuse with intoxication, unspecified; F17.200 Nicotine dependence, unspecified, uncomplicated; Z20.822 Contact with and (suspected) exposure to COVID-19; Y90.9 Presence of alcohol in blood, level not specified
CPT/HCPCS: 82075; 87635; 99284; J2060